=== PATIENT | female | born 1940 | race Caucasian/White ===

== ENCOUNTER 2016-04-06 04:25 | Observation (INO) | payer MEDICARE, OTHER ==
[2016-04-06 05:07] LABS: ABSOLUTE BASOPHILS # (AUTO) 0.1 10^3/uL (0.0-0.2); ABSOLUTE EOSINOPHILS # (AUTO) 0.3 10^3/uL (0.0-0.6); ABSOLUTE LYMPHOCYTES (AUTO) 1.1 10^3/uL (0.5-4.7); ABSOLUTE MONOCYTES (AUTO) 0.4 10^3/uL (0.1-1.4); ABSOLUTE NEUT (AUTO) 4.3 10^3/uL (1.7-8.2); BASOPHILS % (AUTO) 0.9 % (0-2); EOSINOPHILS % (AUTO) 4.5 % (0-6); HEMOGLOBIN 13.2 g/dL (12.0-15.5); HGB HCT DIFFERENCE 0.6; MEAN CORPUSCULAR HEMOGLOBIN 29.6 pg (27.0-33.4); MEAN CORPUSCULAR HGB CONC 33.7 g/dL (32.0-36.0); MEAN CORPUSCULAR VOLUME 88 fl (80-97); MONOCYTES % (AUTO) 7.2 % (3-13); RED BLOOD COUNT 4.45 10^6/uL (3.72-5.28); RED CELL DISTRIBUTION WIDTH 14.6 % (11.5-14.0); SEGMENTED NEUTROPHILS % (AUTO) 69.4 % (42-78); WHITE BLOOD COUNT 6.2 10^3/uL (4.0-10.5)
--- NOTE | 2016-04-06 05:11 | ER Document Report ---
ED General - General TRAVEL OUTSIDE OF THE [place] IN LAST 30 DAYS: No <CLAIRE ARREOLA - Last Filed: 04/06/16 06:37> <SUKHI JONES - Last Filed: 04/06/16 07:44> - General Chief Complaint: Weakness Stated Complaint: CHEST PAIN Notes: Patient is a 76-year-old female presents with complaints of weakness in her left leg and left arm. She says her symptoms start why she is a work around 3: 30 am. She knows that when she was walking she starts to drag her leg. She denies weakness or left arm. No headache. Triage note does mention chest pain. Patient says that she little burning in her chest yesterday. No current pain or burning. No history of stroke or coronary disease. She takes medications for blood pressure. She denies being on blood thinning medications. No other complaints at this time. (CLAIRE ARREOLA) - Related Data Allergies/Adverse Reactions: No Known Allergies Allergy (Unverified 04/06/16 04:30) Past Medical History - Social History Smoking Status: Never Smoker Chew tobacco use (# tins/day): No Frequency of alcohol use: None Drug Abuse: None Family History: Reviewed & Not Pertinent Patient has suicidal ideation: No Patient has homicidal ideation: No Renal/ Medical History: Denies: Hx Peritoneal Dialysis <CLAIRE ARREOLA - Last Filed: 04/06/16 06:37> Review of Systems <CLAIRE ARREOLA - Last Filed: 04/06/16 06:37> <SUKHI JONES - Last Filed: 04/06/16 07:44> - Review of Systems Notes: My Normal Review Basic REVIEW OF SYSTEMS: CONSTITUTIONAL : Denies fever, chills, or sweats. Denies recent illness. EENT: Denies eye, ear, throat, or mouth pain or symptoms. Denies nasal or sinus congestion. CARDIOVASCULAR: Brief episode of chest pain yesterday. RESPIRATORY: Denies cough, cold, or chest congestion. Denies shortness of breath, difficulty breathing, or wheezing. GASTROINTESTINAL: Denies abdominal pain. Denies nausea, vomiting, or diarrhea. Denies constipation. Last BM: MUSCULOSKELETAL: Denies neck or back pain or joint pain or swelling. SKIN: Denies rash or skin lesions. NEUROLOGICAL: Left leg weakness. Some left arm weakness. Some numbness in left arm. ALL OTHER SYSTEMS REVIEWED AND NEGATIVE. (CLAIRE ARREOLA) Physical Exam <CLAIRE ARREOLA - Last Filed: 04/06/16 06:37> <SUKHI JONES - Last Filed: 04/06/16 07:44> - Vital signs Vitals: Temp Pulse Resp BP Pulse Ox 97.8 F 96 18 222/105 H 95 04/06/16 04:28 04/06/16 04:28 04/06/16 04:28 04/06/16 04:28 04/06/16 04:28 (CLAIRE ARREOLA) (SUKHI JONES) - Notes Notes: General Appearance: Well nourished, alert, cooperative, no acute distress, no obvious discomfort. Well-appearing. Vitals: reviewed, See vital signs table. Head: no swelling or tenderness to the head Eyes: PERRL, EOMI, Conjuctiva clear Mouth: No decreasd moisture Throat: No tonsillar inflammation, No airway obstruction, No lymphadenopathy Neck: Supple, no neck tenderness, No thyromegaly Lungs: No wheezing, No rales, No rhonci, No accessory muscle use, good air exchange bilaterally. Heart: Normal rate, Regular rythm, No murmur, no rub Abdomen: Normal BS, soft, No rigidity, No abdominal tenderness, No guarding, no rebound, no abdominal masses, no organomegaly Extremities: , good pulses in all extremities, no swelling or tenderness in the extremities, no edema. Skin: warm, dry, appropriate color, no rash Neuro: speech clear, oriented x 3, normal affect, responds appropriately to questions. Cranial nerves II through XII are intact. Patient is good strength in the right extremities. Patient has good strength with plantar and dorsiflexion of both feet. Patient has difficulty in raising her left leg off the bed. Upon standing patient is unable to bear much weight on his left leg and starts to stumble when she walks. Patient is hard time picking her left leg completely off the floor to take a step. Patient is good strength in the left upper extremity. Distal sensation intact. (CLAIRE ARREOLA) Course - Laboratory Result Diagrams: 04/06/16 04:55 04/06/16 04:55 <CLAIRE ARREOLA - Last Filed: 04/06/16 06:37> - Laboratory Result Diagrams: 04/06/16 04:55 04/06/16 04:55 <SUKHI JONES - Last Filed: 04/06/16 07:44> - Re-evaluation Re-evalutation: 04/06/16 06:37 On reevaluation patient has full sensation in her left upper extremities full strength. She still has some weakness in her left leg; however, this weakness is improving and that she can now lift her leg completely off the bed. Earlier she was only able to lift her heel off the bed. Speech continues to be clear. Facial movements continue to be normal. We will admit the patient for further workup and treatment of her stroke. (CLAIRE ARREOLA) - Vital Signs Vital signs: Temp Pulse Resp BP Pulse Ox 98.4 F 92 12 196/106 H 98 04/06/16 05:41 04/06/16 06:00 04/06/16 07:01 04/06/16 07:01 04/06/16 07:01 (CLAIRE ARREOLA) (SUKHI JONES) - Laboratory Laboratory results interpreted by me: 04/06/16 04/06/16 04/06/16 04:55 04:55 05:45 RDW 14.6 H Est GFR ( Amer) 54 L Est GFR (Non-Af Amer) 44 L Creatine Kinase 148 H Ur Leukocyte Esterase SMALL H (SUKHI JONES) - EKG Interpretation by Me Additional EKG results interpreted by me: 04/06/16 05:11 EKG is reviewed and interpreted by me. EKG shows normal sinus rhythm with rate [address] segment elevation or depression. No ischemic T wave inversions. AR interval, QRS duration, QTC intervals are within normal range. No old EKG available for comparison. (CLAIRE ARREOLA) - Transfer of Care Notes: 04/06/16 06:01 I did speak with the patient right away but THROMBOLYTICS SINCE SHE WAS WITHIN THE TIMEFRAME. Her NIH scale is only 4. I informed her that according to research giving thrombolytics will increase the likelihood of her having return of function in 6 months by approximately 10% in comparison to not receiving the medication. I also informed her that there is a approximately 6% of intracranial hemorrhage which could be permanently debilitating or life- threatening. Patient does not want to take the risk of associated bleeding with the medication. She refuses the thrombolytics. (CLAIRE ARREOLA) Discharge <CLAIRE ARREOLA - Last Filed: 04/06/16 06:37> - Discharge Admitting Provider: Hospitalist Unit Admitted: Telemetry <SUKHI JONES - Last Filed: 04/06/16 07:44> - Discharge Clinical Impression: Stroke Qualifiers: CVA mechanism: unspecified Qualified Code(s): I63.9 - Cerebral infarction, unspecified Hypertension Qualifiers: Hypertension type: unspecified secondary hypertension Qualified Code(s): I15.9 - Secondary hypertension, unspecified Condition: Stable Disposition: ADMITTED INPATIENT Referrals: JOVI TONG NP [Primary Care Provider] - Follow up as needed
[2016-04-06 05:26] LABS: ALANINE AMINOTRANSFERASE 24 U/L (9-52); ALBUMIN 4.4 g/dL (3.5-5.0); ALKALINE PHOSPHATASE 100 U/L (38-126); ANION GAP 11 (5-19); ASPARTATE AMINO TRANSFERASE 23 U/L (14-36); BILIRUBIN,TOTAL 0.7 mg/dL (0.2-1.3); BLOOD UREA NITROGEN 11 mg/dL (7-20); CARBON DIOXIDE 27 mmol/L (22-30); CHLORIDE 102 mmol/L (98-107); CREATINE KINASE 148 U/L (30-135); CREATININE RESULT 1.19 mg/dL (0.52-1.25); GLUCOSE 96 mg/dL (75-110); POTASSIUM 4.1 mmol/L (3.6-5.0); SODIUM 139.7 mmol/L (137-145); TOTAL PROTEIN 7.5 g/dL (6.3-8.2)
[2016-04-06 05:43] LABS: CREATINE KINASE MB 2.19 ng/mL (<4.55)
[2016-04-06 05:46] LABS: TROPONIN I 0.035 ng/mL
[2016-04-06] MEDS ORDERED: ASPIRIN 325 MG TABLET PO ONE (06:04)
[2016-04-06 06:18] LABS: APPEARANCE,URINE SLIGHTLY-CLOUDY; BILIRUBIN,URINE NEGATIVE (NEGATIVE); GLUCOSE, URINE NEGATIVE (NEGATIVE); KETONES,URINE NEGATIVE (NEGATIVE); LEUKOCYTE ESTERASE,URINE SMALL (NEGATIVE); NITRITE,URINE NEGATIVE (NEGATIVE); PROTEIN,URINE NEGATIVE (NEGATIVE); URINE SPECIFIC GRAVITY 1.004; UROBILINOGEN,URINE NEGATIVE mg/dL (<2.0)
[2016-04-06] MEDS ORDERED: CLONIDINE HCL 0.1 MG TABLET PO PRN (08:37)
[2016-04-06] MEDS ORDERED: DOCUSATE SODIUM 100 MG CAPSULE PO PRN (08:43)
[2016-04-06] MEDS ORDERED: ONDANSETRON HCL INJ/PF 4 MG/2 ML SDV IV PRN (08:43)
[2016-04-06] MEDS ORDERED: MAGNESIUM HYDROXIDE SUSP 30 ML UDCUP PO PRN (08:43)
[2016-04-06] MEDS ORDERED: HYDROCODONE/ACETAMINOPHEN 5-325 MG TABLET PO PRN (08:43)
[2016-04-06] MEDS ORDERED: ACETAMINOPHEN 325 MG TABLET PO PRN (08:43)
[2016-04-06] MEDS: FAMOTIDINE 20 MG TABLET PO SCH ×2 (09:32→22:27)
[2016-04-06] MEDS ORDERED: ASPIRIN 81 MG TABLET, ENT COATED PO SCH (10:00)
[2016-04-06] MEDS ORDERED: ATENOLOL 50 MG TABLET PO SCH (10:00)
[2016-04-06 12:44] LABS: CREATINE KINASE MB 1.6 ng/mL (<4.55); TROPONIN I 0.038 ng/mL
[2016-04-06] MEDS ORDERED: CYANOCOBALAMIN (VITAMIN B-12) INJ 1000 MCG/1 ML VIAL IM ONE (14:00)
--- NOTE | 2016-04-06 15:13 | PDOC H&P ---
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 States she was in her previous state of health and denies predisposing factors and aura. She denies headache, vision changes, hearing changes, chest pain, palpitations, fevers or chills, nausea or vomiting. She reports sudden weakness in her left leg causing her to drag the leg adversely affecting her gait with progressive paresthesias climbing up the left leg affecting her left arm described as numbness and tingling and then weakness in the arm and hand as well. She denies difficulty swallowing, slurred speech or word searching. She' s never had anything like this before. Evaluation in the emergency department she had near complete resolution of her symptoms by the time she arrived with only some mild paresthesias persisting which had also resolved by the time of my evaluation. However she was found to be markedly hypertensive with a blood pressure of 212/103, does not routinely take aspirin therapy and so we were asked to admit and evaluate her TIA. Of note the patient reports stopping her atenolol recently because she doesn't like the way it makes her feel. She claims to know when her blood pressure is elevated because it causes a headache and on those days she will take her atenolol. Again she denies headache prior to this episode or during, clearly indicating the headache is a poor predictor. Past Medical History Cardiac Medical History: Reports: Hyperlipidema, Hypertension Pulmonary Medical History: Reports: None Neurological Medical History: Denies: Ischemic CVA, Seizures Endocrine Medical History: Reports: Hypothyroidism Denies: Diabetes Mellitus Type 2 Past Surgical History Past Surgical History: Reports: None Social History Information Source: Patient Smoking Status: Never Smoker Frequency of Alcohol Use: None Hx Recreational Drug Use: No Hx Prescription Drug Abuse: No - Advance Directive Resuscitation Status: Full Code Family History Family History: Reviewed & Not Pertinent. denies: CAD, CVA Parental Family History Reviewed: Yes Children Family History Reviewed: Yes Sibling(s) Family History Reviewed.: Yes Medication/Allergy Home Medications: Atenolol [Tenormin 50 mg Tablet] 50 mg PO DAILY 04/06/16 Atorvastatin Calcium [Lipitor 10 mg Tablet] 10 mg PO QHS 04/06/16 Clobetasol Propionate [Clobetasol Propionate Ointment] 1 applic TOP Q12HP PRN Ergocalciferol (Vitamin D2) [Drisdol 50,000 unit (1.25MG) Capsule] 50,000 units PO SUTH@1000 04/06/16 Estradiol [Estrace] 1 applic PV QHS 04/06/16 Fenofibrate Nanocrystallized [Tricor 48 mg Tablet] 45 mg PO DAILY 04/06/16 Hydrochlorothiazide [Hydrodiuril 25 mg Tablet] 12.5 mg PO DAILY 04/06/16 Levothyroxine Sodium [Synthroid 0.088 mg Tablet] 88 mcg PO DAILY 04/06/16 Losartan Potassium [Cozaar 25 mg Tablet] 25 mg PO QHS 04/06/16 Allergies/Adverse Reactions: No Known Allergies Allergy (Unverified 04/06/16 04:30) Review of Systems Constitutional: ABSENT: chills, fever(s), headache(s), weight gain, weight loss Eyes: ABSENT: visual disturbances Ears: ABSENT: hearing changes Cardiovascular: ABSENT: chest pain, dyspnea on exertion, edema, orthropnea, palpitations Respiratory: ABSENT: cough, hemoptysis Gastrointestinal: ABSENT: abdominal pain, constipation, diarrhea, hematemesis, hematochezia, nausea, vomiting Genitourinary: ABSENT: dysuria, hematuria Musculoskeletal: ABSENT: joint swelling Integumentary: ABSENT: rash, wounds Neurological: PRESENT: abnormal gait, focal weakness, numbness, paresthesias, tingling. ABSENT: abnormal speech, confusion, dizziness, syncope Psychiatric: ABSENT: anxiety, depression Endocrine: ABSENT: cold intolerance, heat intolerance, polydipsia, polyuria Hematologic/Lymphatic: ABSENT: easy bleeding, easy bruising Physical Exam Vital Signs: Temp Pulse Resp BP Pulse Ox 98.4 F 89 15 193/80 H 97 04/06/16 05:41 04/06/16 12:00 04/06/16 13:41 04/06/16 13:41 04/06/16 13:41 PHYSICAL EXAM GENERAL: NAD; well developed, thin; no obese; alert and oriented to person, place, time, situation HEENT: normocephalic, atraumatic; EOMI, PERRLA, no conjunctival injection, no scleral icterus; oral mucosa moist, neck supple, no LAD, normal ROM RESPIRATORY: no accessory muscle use, no increased WOB, good air entry bilaterally; no wheezes, rales, rhonchi; no inspiratory crackles CARDIO: no JVD; RRR; no systolic murmur; no tachycardia VASCULAR: no carotid bruit; no abdominal bruit; no pallor; 2+ radial, DP pulse ; normal capillary refill GI: soft; nondistended; normal bowel sounds; no hepato spleno megaly; no rebound, rigidity, guarding; nontender NEURO: Diminished patella reflexes; normal sensation; normal motor function; no dysarthria; no nystagmus; tongue protrudes midline; normal finger to nose; able to cross midline with finger to ear; nonfocal exam MSK: 5/5 strength; normal ROM hips; no tenderness EXTREMITIES: no calf tender; no palpable cords in calf; no clubbing, cyanosis , pedal edema PSYCH: normal affect, normal mood SKIN: warm; moist; no petechiae; no telengectasias; no jaundice; no rash Results Laboratory Results: 04/06/16 04/06/16 11:53 11:53 Creatine Kinase 116 CK-MB (CK-2) 1.60 Troponin I 0.038 Labs reviewed, CBC unremarkable, chemistry is also unremarkable, LFTs unremarkable, CK was mildly elevated 148 and troponin was borderline at 0.035, B12 is low at 225, urinalysis unremarkable EKG Comments: EKG shows normal sinus rhythm with a rate of 97, corrected QT interval 458 and an axis of -[address] segment changes or T-wave inversions to suggest acute ischemia Impressions: Head CT 04/06/16 04:52 IMPRESSION: CHRONIC CHANGES OF ATROPHY AND MICROVASCULAR ISCHEMIA. NO ACUTE PROCESS. Chest X-Ray 04/06/16 05:54 IMPRESSION: NO ACUTE RADIOGRAPHIC FINDING IN THE CHEST. Carotid Doppler Study 04/06/16 08:42 IMPRESSION: NO HEMODYNAMICALLY SIGNIFICANT STENOSIS. Status: Image reviewed by me - Agree with radiology Assessment & Plan - Diagnosis (1) TIA (transient ischemic attack) Qualifiers: Transient cerebral ischemia type: unspecified Qualified Code(s): G45.9 - Transient cerebral ischemic attack, unspecified Is this a current diagnosis for this admission?: YesPlan: Admit the patient to [facility] bed for careful hemodynamic monitoring. The patient is requesting conservative approach and is refusing MRI. She is willing to except ultrasound studies including carotid Dopplers and echocardiogram. She is willing to accept further laboratory evaluation. Begin empiric aspirin therapy, statin therapy. Allow permissive hypertension for the first 48 hours and attempt to keep blood pressure below 190/100. At present she shows no persistent neurologic or motor deficits and therefore physical and occupational and speech therapy evaluations are of low utility. (2) Hypothyroidism Qualifiers: Hypothyroidism type: unspecified Qualified Code(s): E03.9 - Hypothyroidism, unspecified Is this a current diagnosis for this admission?: YesPlan: Confirm the patient's home dose and continue same, check TSH in the morning. (3) B12 deficiency Is this a current diagnosis for this admission?: YesPlan: This is a new diagnosis for her, and may be contributing to some of her paresthesias. Start B12 replacement therapy. (4) Accelerated hypertension Is this a current diagnosis for this admission?: YesPlan: There is likely a component of rebound hypertension contributing to her current situation and in fact her symptoms may be vasospasm related to malignant hypertension. Will treat with a goal less than 190/100 allowing for some permissive hypertension in the face of a possible ischemic event. Follow-up on echocardiogram looking for valvular and/or wall motion abnormalities and left ventricular hypertrophy. - Time Time Spent: 50 to 70 Minutes Medications reviewed and adjusted accordingly: Yes Anticipated discharge: Home Within: within 24 hours
--- NOTE | 2016-04-06 16:55 | EKG REPORT ---
SEVERITY:- ABNORMAL ECG - SINUS RHYTHM LEFT VENTRICULAR HYPERTROPHY NONSPECIFIC T ABNORMALITIES, INFERIOR LEADS : Confirmed by: Rebecca Hill MD 06-Apr-2016 16:53:50
[2016-04-06 18:15] LABS: CREATINE KINASE MB 1.19 ng/mL (<4.55); TROPONIN I 0.033 ng/mL
--- NOTE | 2016-04-06 18:47 | XCELERA REPORT ---
[address] [address] Transthoracic Echocardiogram Report Name: BARBARA PAL Age: 76 yrs Gender: Female : 1940 Patient Status: Inpatient Patient Location: \S\[facility]\S\A Study Date: 04/06/2016 10:29 AM Height: 66 in Weight: 130 lb BSA: 1.7 m2 Procedure: A complete two-dimensional transthoracic echocardiogram was performed (2D, M-mode, spectral and color flow Doppler). The study was technically difficult with many images being suboptimal in quality. Reason For Study: TIA Ordering Physician: LYNN LUZ Performed By: Sanjay Dejesus Interpretation Summary LV EF is 50% Left ventricular systolic function is mildly reduced. Doppler measurements suggest pseudonormalized left ventricular relaxation, which is associated with grade II/IV or mild to moderate diastolic dysfunction There is mild concentric left ventricular hypertrophy. The left ventricle is grossly normal size. Wall motion cannot be accurately commented on, but no definite regional wall motion abnormalities noted. The right ventricular systolic function is normal. The right atrium is normal in size The left atrial size is normal. There is a moderate amount of mitral regurgitation There is no mitral valve stenosis. There is a trace amount of aortic regurgitation There is no aortic valve stenosis There is a trace or physiologic amount of tricuspid regurgitation Tricuspid regurgitation jet envelope not well defined to measure RV systolic pressure accurately. There is no tricuspid stenosis. The aortic root is not well visualized. The inferior vena cava appeared normal and decreased > 50% with respiration (RAP 5-10 mmHg) Minimal pericardial effusion. No definite cardiac source of CVA/TIA noted on this particular trans- thoracic study. Consider ANUP if clinically indicated. May consider mobile cardiac telemetry monitoring (MCT) for ruling out transient AFIB. The study was technically difficult with many images being suboptimal in quality. MMode/2D Measurements \T\ Calculations RVDd: 1.7 cm LVIDd: 4.6 cm FS: 20.9 % Ao root diam: IVSd: 1.3 cm LVIDs: 3.6 cm EDV(Teich): 2.9 cm LVPWd: 1.3 cm 96.0 ml Ao root area: ESV(Teich): 55.1 ml 6.7 cm2 EF(Teich): 42.6 %LA dimension: 3.4 cm LVLd ap4: 6.8 cm SV(MOD-sp4): EDV(MOD-sp4): 52.0 ml 94.0 ml LVLs ap4: 5.3 cm ESV(MOD-sp4): 42.0 ml EF(MOD-sp4): 55.3 % Doppler Measurements \T\ Calculations MV E max gaye: MV P1/2t max gaye: Ao V2 max: LV V1 max P.1 cm/sec 56.8 cm/sec 132.6 cm/sec 3.6 mmHg MV A max gaye: MV P1/2t: 60.9 msec Ao max PG: LV V1 max: 146.8 cm/sec MVA(P1/2t): 3.6 cm2 7.0 mmHg 94.8 cm/sec MV E/A: 0.38 MV dec slope: 273.1 cm/sec2 MV dec time: 0.20 sec PA V2 max: TR max gaye: RAP systole: 54.1 cm/sec 197.6 cm/sec 10.0 mmHg PA max P.2 mmHgTR max P.6 mmHg RVSP(TR): 25.6 mmHg Left Ventricle The left ventricle is grossly normal size. There is mild concentric left ventricular hypertrophy. Left ventricular systolic function is mildly reduced. LV EF is 50%. Doppler measurements suggest pseudonormalized left ventricular relaxation, which is associated with grade II/IV or mild to moderate diastolic dysfunction. Wall motion cannot be accurately commented on, but no definite regional wall motion abnormalities noted. Right Ventricle The right ventricle is grossly normal size. There is normal right ventricular wall thickness. The right ventricular systolic function is normal. Atria The right atrium is normal in size. The left atrial size is normal. Interarterial septum not well visualized and not well dopplered. Cannot comment on ASD/PFO presence. Mitral Valve There is mild mitral leaflet calcification. There is no mitral valve stenosis. There is a moderate amount of mitral regurgitation. Aortic Valve The aortic valve is mildly calcified. There is no aortic valve stenosis. There is a trace amount of aortic regurgitation. Tricuspid Valve The tricuspid valve is not well visualized secondary to technical limitations. There is no tricuspid stenosis. There is a trace or physiologic amount of tricuspid regurgitation. Tricuspid regurgitation jet envelope not well defined to measure RV systolic pressure accurately. Pulmonic Valve The pulmonic valve is not well visualized. Great Vessels The aortic root is not well visualized. The inferior vena cava appeared normal and decreased > 50% with respiration (RAP 5-10 mmHg). Effusions Minimal pericardial effusion. Incidental Findings No definite cardiac source of CVA/TIA noted on this particular trans- thoracic study. Consider ANUP if clinically indicated. May consider mobile cardiac telemetry monitoring (MCT) for ruling out transient AFIB. : LYNN LUZ > Sean Stevenson
[2016-04-06] MEDS ORDERED: ATORVASTATIN CALCIUM 80 MG TABLET PO SCH (22:00)
[2016-04-07 00:17] LABS: CREATINE KINASE MB 1.42 ng/mL (<4.55); TROPONIN I 0.035 ng/mL
[2016-04-07 07:47] LABS: CHOLESTEROL 242.84 mg/dL (0-200); Direct HDL 68 mg/dL (>40); TRIGLYCERIDES 166 mg/dL (<150)
[2016-04-07 07:58] LABS: DIRECT LDL 135 mg/dL (<100)
[2016-04-07] MEDS ORDERED: ENOXAPARIN SODIUM INJ 40 MG/0.4 ML DISP.SYRIN SUBCUT SCH (08:00)
[2016-04-07 08:01] LABS: VLDL CHOLESTEROL 33.2 mg/dL (10-31)
[2016-04-07 09:50] VITALS: BP 160/88
[2016-04-07] MEDS ORDERED: CYANOCOBALAMIN (VITAMIN B-12) INJ 1000 MCG/1 ML VIAL IM SCH (10:00)
--- NOTE | 2016-04-07 14:42 | PDOC DISCHARGE SUMMARY ---
General - Admit/Disc Date/PCP Admission Date/Primary Care Provider: 04/06/16 08:37 JOVI TONG NP Discharge Date: 04/07/16 - Discharge Diagnosis (1) TIA (transient ischemic attack) Is this a current diagnosis for this admission?: YesSummary: She's had complete resolution of the symptoms that brought her to the emergency department without recurrence. She refused MRI but allowed echocardiogram that showed a mildly suppressed left the catheter function with an EF of 50%, grade 2 diastolic dysfunction, and moderate mitral regurgitation. No source of embolic disease was identified on echo. Her carotid Doppler showed less than 50 % bilateral stenosis with plaque evident. Her lipid panel shows all to be abnormal. Her hemoglobin A1c was normal at 5.7. As she has had no persistent or recurrent symptoms she is stable for discharge home at this time. Will continue atenolol and add high-dose statin therapy and aspirin. (2) Hypothyroidism Is this a current diagnosis for this admission?: YesSummary: TSH is not at goal at greater than 11 but she states her PCP just recently increased her Synthroid from 25-50 g. Will defer to PCP regarding further titration. (3) B12 deficiency Is this a current diagnosis for this admission?: YesSummary: This may be contributing to some of the paresthesias she exhibited but certainly not the loss of motor function in the left lower extremity. 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 Defer to her PCP regarding additional IM injections and monitoring. (4) Accelerated hypertension Is this a current diagnosis for this admission?: YesSummary: Largely due to medical noncompliance, she was counseled regarding the consistent use of beta blockers rather than intermittent. She states clear understanding and willingness to comply. She does not like the way she feels on the higher dose of atenolol at 100 mg per day so we will continue only up to 50 for now and defer to her PCP at follow-up in one week with the addition of antihypertensive regimens. Would recommend considering LEANDRA inhibitor given her echocardiogram findings and risk for recurrent stroke. - Additional Information Resuscitation Status: Full Code Discharge Diet: Cardiac Discharge Activity: Activity As Tolerated Home Medications: Atenolol [Tenormin 50 mg Tablet] 50 mg PO DAILY 04/06/16 Clobetasol Propionate [Clobetasol Propionate Ointment] 1 applic TOP Q12HP PRN Ergocalciferol (Vitamin D2) [Drisdol 50,000 unit (1.25MG) Capsule] 50,000 units PO SUTH@1000 04/06/16 Acetaminophen [Tylenol 325 mg Tablet] 650 mg PO Q4HP PRN tablet 04/07/16 Aspirin [Ecotrin 81 mg EC Tablet] 162 mg PO DAILY tabec 04/07/16 Atenolol [Tenormin 50 mg Tablet] 25 mg PO DAILY #30 tablet 04/07/16 Atorvastatin Calcium [Lipitor 80 mg Tablet] 80 mg PO QHS #30 tablet 04/07/16 Levothyroxine Sodium [Synthroid 0.088 mg Tablet] 50 mcg PO DAILY #30 04/07/16 History of Present Illness Patient complains of: Left leg and arm weakness History of Present Illness: BARBARA PAL is a 76 year old female presents to the emergency department from home with sudden onset of left-sided weakness at around 3:30 this morning 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 Hospital Course Hospital Course: States she was in her previous state of health and denies predisposing factors and aura. She denies headache, vision changes, hearing changes, chest pain, palpitations, fevers or chills, nausea or vomiting. She reports sudden weakness in her left leg causing her to drag the leg adversely affecting her gait with progressive paresthesias climbing up the left leg affecting her left arm described as numbness and tingling and then weakness in the arm and hand as well. She denies difficulty swallowing, slurred speech or word searching. She' s never had anything like this before. Evaluation in the emergency department she had near complete resolution of her symptoms by the time she arrived with only some mild paresthesias persisting which had also resolved by the time of my evaluation. However she was found to be markedly hypertensive with a blood pressure of 212/103, does not routinely take aspirin therapy and so we were asked to admit and evaluate her TIA. She was admitted to the hospital for overnight monitoring and did not show any cardiac arrhythmias. She had complete resolution of her symptoms within hours of her arrival. She had no recurrence of her symptoms overnight. Evaluation including echocardiogram and carotid Dopplers were performed as well as extensive laboratory evaluation that showed the findings noted above. She was allowed permissive hypertension in the setting of acute TIA but was resumed on a lower dose antihypertensive in anticipation of close outpatient follow-up with her primary care provider in one week for further titration. Her goal blood pressure over the next 3 months should be 140/90 or less and ultimately by years and 125/85 or less. She was started on low-dose aspirin as primary prophylaxis, and initiated high-dose statin therapy to stabilize the plaque seen her carotid arteries as well as to lower the multiple lines of cholesterol that are elevated. At this time she is stable for discharge and quite anxious for discharge home. She expresses no concerns to me about discharge at this time. Multiple family members were present in the room, I spent at least 30 minutes with him and answering their questions and reviewing her case with her permission. All questions were asked and answered to their satisfaction. Physical Exam Vital Signs: Temp Pulse Resp BP Pulse Ox 97.5 F 68 16 160/88 H 99 04/07/16 09:48 04/07/16 09:48 04/07/16 09:48 04/07/16 09:48 04/07/16 09:48 Intake & Output 04/06/16 04/07/16 04/08/16 06:59 06:59 06:59 Intake Total 407 Balance 407 Weight 61.1 kg PHYSICAL EXAM GENERAL: NAD; well developed, thin; no obese; alert and oriented to person, place, time, situation HEENT: normocephalic, atraumatic; EOMI, PERRLA, no conjunctival injection, no scleral icterus; oral mucosa moist, neck supple, no LAD, normal ROM RESPIRATORY: no accessory muscle use, no increased WOB, good air entry bilaterally; no wheezes, rales, rhonchi; no inspiratory crackles CARDIO: no JVD; RRR; no systolic murmur; no tachycardia VASCULAR: no carotid bruit; no abdominal bruit; no pallor; 2+ radial, DP pulse ; normal capillary refill GI: soft; nondistended; normal bowel sounds; no hepato spleno megaly; no rebound, rigidity, guarding; nontender NEURO: Normal patella reflexes; normal sensation; normal motor function; no dysarthria; no nystagmus; tongue protrudes midline; normal finger to nose; able to cross midline with finger to ear; nonfocal exam MSK: 5/5 strength; normal ROM hips; no tenderness EXTREMITIES: no calf tender; no palpable cords in calf; no clubbing, cyanosis , pedal edema PSYCH: normal affect, normal mood SKIN: warm; moist; no petechiae; no telengectasias; no jaundice; no rash Results Laboratory Results: 04/07/16 04/07/16 06:20 06:20 Triglycerides 166 H Cholesterol 242.84 H LDL Cholesterol Direct 135 H VLDL Cholesterol 33.2 H HDL Cholesterol 68 TSH 11.30 H 04/06/16 04/06/16 04/06/16 11:53 11:53 17:28 Creatine Kinase 116 111 CK-MB (CK-2) 1.60 Troponin I 0.038 04/06/16 04/06/16 04/06/16 17:28 23:38 23:38 Creatine Kinase 107 CK-MB (CK-2) 1.19 1.42 Troponin I 0.033 0.035 Impressions: Head CT 04/06/16 04:52 IMPRESSION: CHRONIC CHANGES OF ATROPHY AND MICROVASCULAR ISCHEMIA. NO ACUTE PROCESS. Chest X-Ray 04/06/16 05:54 IMPRESSION: NO ACUTE RADIOGRAPHIC FINDING IN THE CHEST. Carotid Doppler Study 04/06/16 08:42 IMPRESSION: NO HEMODYNAMICALLY SIGNIFICANT STENOSIS. Qualifiers PATEINT BEING DISCHARGED WITH ANY OF THE FOLLOWING DIAGNOSIS?: Stroke VTE patient discharged on overlapping Therapy?: Yes Stroke Pt being discharged on Anti-thrombolytic therapy?: Yes Stroke Pt being discharged on Anti-coagulation therapy?: No Reason(s) for not prescribing Anti-coagulation therapy:: Not indicated Stroke Pt being discharged on Statins?: Yes Plan Discharge Plan: Discharged home with close outpatient follow-up with her PCP in one week. Signs and symptoms of stroke were described to both she and her family emphasizing the need to return to the emergency department for evaluation within 3 hours of onset of symptoms. They all expressed understanding and willingness to comply with medical direction. Time Spent: Greater than 30 Minutes
== END 2016-04-07 10:20 | disposition home or self-care (01) ==
LOC: ER 04:25 → UNDOADMIN 07:54 → EH 07:54 → INTOOBSV 08:37 → EH 08:37 → 3W 21:40
PROVIDERS: ADMIT Internal Medicine; ATTEND Internal Medicine
DX: G45.9 Transient cerebral ischemic attack, unspecified (principal); E03.9 Hypothyroidism, unspecified; E53.8 Deficiency of other specified B group vitamins; I10 Essential (primary) hypertension; E78.5 Hyperlipidemia, unspecified
CPT/HCPCS: 93005; 99285; 36415 ×2; 82553; 82962; 82607; 82550; 84443; 85025; 80053; 81001; 84484; 83036; 80061; 93306; 93880; 71010; 70450; 93010; 97162; G0378 ×2; A9270 ×6; J3420; J1650; J3490 ×2; G8978; G8979

== ENCOUNTER 2016-06-06 06:48 | Day surgery (SDC) | payer MEDICARE, OTHER ==
[~2016-06-06 06:48] MED LIST: KETOROLAC TROMETHAMINE 0.45% 4 DROP/0.4 ML DROPERETTE OD PRN
[2016-06-06] MEDS: CYCLOPENTOLATE 0.2%/PHENYLEPHRINE 1% OPH SOLN 2 ML OD PRN ×3 (07:00→07:33)
[2016-06-06] MEDS: TROPICAMIDE 1% OPH SOLN 3 ML OD PRN ×3 (07:00→07:33)
[2016-06-06] MEDS: BESIFLOXACIN HCL 0.6% OPH SUSP 5 ML BOTTLE OD PRN ×4 (07:01→08:15)
[2016-06-06] MEDS: TETRACAINE HCL 0.5% OPH SOLN 0.6 ML DROPERETTE OD PRN ×3 (07:02→07:54)
[2016-06-06] MEDS ORDERED: MIDAZOLAM 2 MG/2 ML INJ ONE (07:29)
[2016-06-06] MEDS ORDERED: FENTANYL CITRATE INJ/PF 100 MCG/2 ML AMPUL ONE (07:29)
[2016-06-06] MEDS: EPINEPHRINE INJ/PF 1 MG/1 ML AMPULE ONE ×2 (08:05)
[2016-06-06] MEDS: CHONDR SU A NA/HYALUR INTRAOC KIT (SURGICARE) ONE ×2 (08:05)
[2016-06-06] MEDS: LIDOCAINE 1% INJ-PF (10 MG/ML) 30 ML SDV ONE ×2 (08:05)
[2016-06-06] MEDS: TOBRAMYCIN SULFATE/DEXAMETH OPH OINTMENT 3.5 GM ONE ×2 (08:15)
== END 2016-06-06 09:02 | disposition home or self-care (01) ==
LOC: SC 06:48
PROVIDERS: ATTEND Ophthalmology
PROC: 08RJ3JZ Replacement of Right Lens with Synthetic Substitute, Percutaneous Approach (ICD-10-PCS; principal; 2016-06-06 07:45)
DX: H25.11 Age-related nuclear cataract, right eye (principal); I10 Essential (primary) hypertension; E78.00 Pure hypercholesterolemia, unspecified; E03.9 Hypothyroidism, unspecified; K21.9 Gastro-esophageal reflux disease without esophagitis; Z79.82 Long term (current) use of aspirin; Z79.899 Other long term (current) drug therapy; Z86.73 Personal history of transient ischemic attack (TIA), and cerebral infarction without residual deficits
CPT/HCPCS: 66984; V2630; J2250; J3490 ×3; A9270; J0171; 142; J3010

== ENCOUNTER 2016-06-20 07:08 | Day surgery (SDC) | payer MEDICARE, OTHER ==
[~2016-06-20 07:08] MED LIST changes: -KETOROLAC TROMETHAMINE 0.45% 4 DROP/0.4 ML DROPERETTE OD PRN; +KETOROLAC TROMETHAMINE 0.45% 4 DROP/0.4 ML DROPERETTE OS PRN
[2016-06-20] MEDS: BESIFLOXACIN HCL 0.6% OPH SUSP 5 ML BOTTLE OS PRN ×3 (07:21→08:34)
[2016-06-20] MEDS: CYCLOPENTOLATE 0.2%/PHENYLEPHRINE 1% OPH SOLN 2 ML OS PRN ×3 (07:21→07:59)
[2016-06-20] MEDS: TROPICAMIDE 1% OPH SOLN 3 ML OS PRN ×3 (07:21→07:59)
[2016-06-20] MEDS: TETRACAINE HCL 0.5% OPH SOLN 0.6 ML DROPERETTE OS PRN ×3 (07:22→08:17)
[2016-06-20] MEDS ORDERED: LIDOCAINE 1% INJ-PF (10 MG/ML) 30 ML SDV ONE (07:32)
[2016-06-20] MEDS ORDERED: EPINEPHRINE INJ/PF 1 MG/1 ML AMPULE ONE (07:32)
[2016-06-20] MEDS ORDERED: CHONDR SU A NA/HYALUR INTRAOC KIT (SURGICARE) ONE (07:32)
[2016-06-20] MEDS ORDERED: TOBRAMYCIN SULFATE/DEXAMETH OPH OINTMENT 3.5 GM ONE (07:32)
[2016-06-20] MEDS ORDERED: MIDAZOLAM 2 MG/2 ML INJ ONE (08:04)
[2016-06-20] MEDS ORDERED: FENTANYL CITRATE INJ/PF 100 MCG/2 ML AMPUL ONE (08:04)
== END 2016-06-20 09:26 | disposition home or self-care (01) ==
LOC: SC 07:08
PROVIDERS: ATTEND Ophthalmology
PROC: 08RK3JZ Replacement of Left Lens with Synthetic Substitute, Percutaneous Approach (ICD-10-PCS; principal; 2016-06-20 08:15)
DX: H25.12 Age-related nuclear cataract, left eye (principal); Z96.1 Presence of intraocular lens; M19.90 Unspecified osteoarthritis, unspecified site; E03.9 Hypothyroidism, unspecified; E78.00 Pure hypercholesterolemia, unspecified; I10 Essential (primary) hypertension; M81.0 Age-related osteoporosis without current pathological fracture; Z86.73 Personal history of transient ischemic attack (TIA), and cerebral infarction without residual deficits; Z79.82 Long term (current) use of aspirin; Z79.899 Other long term (current) drug therapy
CPT/HCPCS: 66984; V2630; J2250; J3490 ×3; A9270; J0171; J3010; 142

== ENCOUNTER 2017-06-09 05:39 | Emergency (ER) | payer MEDICARE, OTHER ==
--- NOTE | 2017-06-09 05:53 | ER Document Report ---
Doctor's Note Notes: 06/09/17 05:50 I performed a quick triage evaluation the patient. Patient is 77-year-old female who is brought straight back from triage because of having strokelike symptoms. She says the symptoms started around 3:30 AM when she was getting in her car to come to work. She said by getting ready to go to work in the house she was fine without any problems. She knows that she takes blood pressure medications. She does not think she takes blood thinning medications. She complains of weakness in her right arm and slurring of her speech. On exam patient has always slightly slurred speech. She does have some weakness and discoordination of the right arm however she is able to keep her right arm raise against gravity for more than 10 seconds. She is able to keep the remainder of her 3 extremities raising is gravity for 10 seconds. She has good distal sensation. I have ordered an emergent CT scan of the head to rule out intracranial bleeding. Patient will then be reassessed and have discussion about thrombolytics if she does not have contraindications. Dictation of this chart was performed using voice recognition software; therefore, there may be some unintended grammatical errors. 06/09/17 05:53
--- NOTE | 2017-06-09 05:54 | ER Document Report ---
ED NIH Stroke Scale - NIH Stroke Scale *: 1. NIH scale should be completed with appropriate accompanying assessment tools. *: 2. The NIH should reflect what the patient is capable of doing and should not be coached by the clinician. 1a. Level of Consciousness: 0=Alert;keenly responsive -: 1=Drowsy -: 2=Obtunded -: 3=Coma/unresponsive or reflex to noxious stimuli. 1a. Responses: 0 1b. Orientation Questions: a. What month is it? -: b. How old are you? -: 0=Answers both questions correctly. -: 1=Answers one question correctly or patient is intubated or has orotracheal trauma. -: 2=Answers neither question correctly. 1b. Responses: 0 1c. Response to commands: a. Open and close eyes? -: b. Cat Scan Technologist and release hand? -: Credit is given despite weakness. Demonstration of task is permitted. Substitute command if hands cannot be used. -: 0=Performs both tasks correctly -: 1=Performs one task correctly -: 2=Performs neither task correctly 1c. Responses: 0 2. Gaze: Establish eye contact and instruct patient to "Follow my finger" -: 0=Normal -: 1=Partial gaze palsy. Gaze is abnormal in one or both eyes, but where forced deviation or total gaze paresis is not present. -: 2=Forced deviation or total gaze paresis. 2. Responses: 0 3. Visual Finn: Sees fingers in all four quadrants. -: 0=No visual loss. -: 1=Partial hemianopsia. -: 2=Complete hemianopsia. -: 3=Bilateral hemianopsia (including Cortical blindness) 3. Responses: 0 4. Facial Movement: Instruct patient to: -: a. Show me your teeth -: b. Raise your eyebrows -: c. Close your eyes -: d. Smile -: 0=Normal symmetrical movement -: 1=Minor paralysis (flattened nasolabial fold, asymmetry on smiling). -: 2=Partial paralysis (total or near total paralysis of lower face). -: 3=Complete paralysis of upper and lower face 4. Responses: 0 5. Motor functions (left arm): Alternate sides and extend each arm with palms down (90 degrees if sitting or 45 degrees for supine). -: 0=No drift;limb holds for full 10 seconds. -: 1=Drift; limb holds but drifts down before full 10 seconds, but does not hit bed. -: 2=Some effort against gravity; limb cannot get to or maintain position. -: 3=No effort against gravity; limb falls. -: 4=No movement. -: UN=Amputation, joint fusion, explain in comments. 5. Responses (left arm): 0 5. Motor Functions (right arm): Alternate sides and extend each arm with palms down (90 degrees if sitting or 45 degrees for supine). -: 0=No drift;limb holds for full 10 seconds. -: 1=Drift; limb holds but drifts down before full 10 seconds, but does not hit bed. -: 2=Some effort against gravity; limb cannot get to or maintain position. -: 3=No effort against gravity; limb falls. -: 4=No movement. -: UN=Amputation, joint fusion, explain in comments. 5. Responses (right arm): 0 6. Motor Functions (left leg): With patient lying supine, alternate sides and extend each leg (30 degrees always while supine). -: 0=No drift, leg holds position for full 5 seconds -: 1=Drift; leg falls before full 5 seconds but does not hit bed. -: 2=Some effort against gravity, leg falls to bed but some effort against gravity. -: 3=No effort against gravity, leg falls to bed immediately. -: 4=No movement. -: UN=Amputation, joint fusion; explain in comments. 6. Responses (left leg): 0 6. Motor Functions (right leg): With patient lying supine, alternate sides and extend each leg (30 degrees always while supine). -: 0=No drift, leg holds position for full 5 seconds -: 1=Drift; leg falls before full 5 seconds but does not hit bed. -: 2=Some effort against gravity, leg falls to bed but some effort against gravity. -: 3=No effort against gravity, leg falls to bed immediately. -: 4=No movement. -: UN=Amputation, joint fusion; explain in comments. 6. Responses (right leg): 0 7. Limb Ataxia: With eyes open instruct patient to: -: a. "Touch your finger to your nose". -: b. "Touch your heel to your bartholomew" -: 0=Absent -: 1=Present in one limb. -: 2=Present in two limbs. -: UN=Amputation or joint fusion; explain in comments. 7. Responses: 1 7. If ataxia present choose as appropriate: Right arm 8. Sensory: Test sensation using pinprick or noxious stimuli. Test as many body parts as possible. -: 0=Normal;no sensory loss -: 1=Mile to moderate sensory loss (patient feels pin prick but is less sharp on affected side). -: 2=Severe or total sensory loss. 8. Responses: 0 9. Best Language: Instruct patient to: -: a. "Describe what you see in this picture." -: b. "Name the items in this picture." -: c. "Read these sentences." -: 0=No aphasia, normal -: 1=Mild to moderate aphasia. -: 2=Severe aphasia -: 3=Mute, global aphasia, no usable speech or auditory comprehension. 9. Responses: 1 10. Articulation, Dysarthia: Instruct patient to: -: "Read these words" or "Repeat these words" -: 0=Normal -: 1=Mild to moderate; patient may slur some words but can be understood without difficulty. -: 2=Severe; patients speech so slurred as to be unintelligible in the absence of dysphasia. -: UN=Intubated or other physical barrier, explain in comments. 10. Responses: 1 11. Extinction or inattention: 0=No abnormality -: 1= Visual, tactile, auditory, spatial, or personal inattention or extinction to bilateral simulation in one or the sensory modalities. -: 2=Profound cecilia-inattention or cecilia-inattention to more than one modality; does not recognize own hand. 11. Responses: 0 Total Score: 3
--- NOTE | 2017-06-09 06:09 | RADIOLOGY REPORT (SQ) ---
EXAM DESCRIPTION: CT HEAD WITHOUT CLINICAL HISTORY: 77 years Female, slurred speech COMPARISON: None. TECHNIQUE: No contrast. Coronal and sagittal reformat. This exam was performed according to our departmental dose-optimization program, which includes automated exposure control, adjustment of the mA and/or kV according to patient size and/or use of iterative reconstruction technique. FINDINGS: No hemorrhage or infarct. No mass, mass effect, or midline shift. Mild white matter microangiopathy. Atherosclerosis. Brain and extra-axial structures appear otherwise intact. IMPRESSION: No acute findings.
[2017-06-09 06:19] LABS: ABSOLUTE EOSINOPHILS # (AUTO) 0.1 10^3/uL (0.0-0.6); ABSOLUTE LYMPHOCYTES (AUTO) 0.9 10^3/uL (0.5-4.7); ABSOLUTE MONOCYTES (AUTO) 0.3 10^3/uL (0.1-1.4); ABSOLUTE NEUT (AUTO) 4.7 10^3/uL (1.7-8.2); BASOPHILS % (AUTO) 0.7 % (0-2); EOSINOPHILS % (AUTO) 2.4 % (0-6); HEMATOCRIT 41.7 % (36.0-47.0); HEMOGLOBIN 13.8 g/dL (12.0-15.5); LYMPHOCYTES % (AUTO) 14.4 % (13-45); MEAN CORPUSCULAR HEMOGLOBIN 28.8 pg (27.0-33.4); MEAN CORPUSCULAR VOLUME 87 fl (80-97); MONOCYTES % (AUTO) 5.5 % (3-13); PLATELET COUNT 220 10^3/uL (150-450); RED BLOOD COUNT 4.77 10^6/uL (3.72-5.28); RED CELL DISTRIBUTION WIDTH 15.1 % (11.5-14.0); TOTAL CELLS COUNTED % (AUTO) 100 %; WHITE BLOOD COUNT 6.1 10^3/uL (4.0-10.5)
[2017-06-09 06:23] LABS: INTERNATIONAL RATION (INR) 0.91
[2017-06-09 06:29] LABS: PARTIAL THROMBOPLASTIN TIME 32.2 SEC (23.5-35.8); PROTHROMBIN TIME 12.7 SEC (11.4-15.4)
[2017-06-09] MEDS ORDERED: LABETALOL HCL INJ 20 MG/4 ML DISP.SYRIN IV ONE ×2 (06:31→07:02)
[2017-06-09 06:45] LABS: ALANINE AMINOTRANSFERASE 18 U/L (9-52); ALBUMIN 4.9 g/dL (3.5-5.0); ALKALINE PHOSPHATASE 116 U/L (38-126); ANION GAP 11 (5-19); ASPARTATE AMINO TRANSFERASE 32 U/L (14-36); BILIRUBIN,DIRECT 0.4 mg/dL (0.0-0.4); BILIRUBIN,TOTAL 0.8 mg/dL (0.2-1.3); BLOOD UREA NITROGEN 17 mg/dL (7-20); CALCIUM 10.2 mg/dL (8.4-10.2); CARBON DIOXIDE 30 mmol/L (22-30); CHLORIDE 103 mmol/L (98-107); CREATINE KINASE 239 U/L (30-135); GLUCOSE 115 mg/dL (75-110); SODIUM 144.4 mmol/L (137-145); TOTAL PROTEIN 8.5 g/dL (6.3-8.2)
[2017-06-09 06:46] LABS: CREATINE KINASE MB 2.61 ng/mL (<4.55); TROPONIN I 0.016 ng/mL
--- NOTE | 2017-06-09 06:49 | RADIOLOGY REPORT (SQ) ---
EXAM DESCRIPTION: CHEST SINGLE VIEW CLINICAL HISTORY: 77 years Female, slurred speech COMPARISON: None. NUMBER OF VIEWS/TECHNIQUE: 1/AP FINDINGS: Adequate lung volume, clear parenchyma, prominent cardiac silhouette, and intact bony thorax. IMPRESSION: No acute cardiopulmonary findings.
[2017-06-09] MEDS ORDERED: NITROGLYCERIN 2% OINTMENT 1 GM PACKET TP ONE (06:54)
--- NOTE | 2017-06-09 07:40 | ER Document Report ---
ED Neuro Symptoms/Deficit - General Chief Complaint: S/S of Possible Stroke Stated Complaint: ARM WEAKNESS Time Seen by Provider: 06/09/17 05:49 Notes: 77-year-old female to the emergency department with chief complaint of strokelike symptoms. Slurred speech and right-sided facial weakness with mild weakness of the right upper and right lower extremity. Patient has had similar symptoms in the past and was diagnosed with a TIA. Patient has extremely high blood pressure with uncontrolled hypertension. Does not know what medications that she takes. The patient's granddaughter states that she is very noncompliant with her medications. 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 Thinks that around 330 or around 4 she began to have some difficulty with speech. Now she states that it is more likely around 4 AM. Actually drove in her car and went home. Notified family members and then patient presented here at around 6 AM. Initial evaluation was performed which showed an NIH stroke scale of 3. One hour later NIH stroke scale was repeated which showed a stroke scale of 6. Pressure was initially stream elevated at 210/110 TRAVEL OUTSIDE OF THE [place]. IN LAST 30 DAYS: No - Related Data Allergies/Adverse Reactions: No Known Allergies Allergy (Unverified 04/06/16 04:30) Past Medical History - General Information source: Patient - Social History Smoking Status: Never Smoker Cigarette use (# per day): No Frequency of alcohol use: None Drug Abuse: None Lives with: Family Family History: Reviewed & Not Pertinent. denies: CAD, CVA Patient has suicidal ideation: No Patient has homicidal ideation: No - Past Medical History Cardiac Medical History: Reports: Hx Hypercholesterolemia, Hx Hypertension - MEDICATED Denies: Hx Heart Attack Pulmonary Medical History: Denies: Hx Asthma Neurological Medical History: Denies: Hx Cerebrovascular Accident, Hx Seizures Endocrine Medical History: Reports: Hx Hypothyroidism. Denies: Hx Diabetes Mellitus Type 2 Renal/ Medical History: Denies: Hx Peritoneal Dialysis GI Medical History: Denies: Hx Hepatitis, Hx Hiatal Hernia, Hx Ulcer Infectious Medical History: Denies: Hx Hepatitis Past Surgical History: Denies: Hx Hysterectomy, Hx Mastectomy, Hx Open Heart Surgery, Hx Pacemaker - Immunizations Hx Diphtheria, Pertussis, Tetanus Vaccination: Yes Review of Systems - Review of Systems Constitutional: No symptoms reported EENT: No symptoms reported, Other - Facial weakness, slurred speech, visual field deficits Cardiovascular: No symptoms reported Respiratory: No symptoms reported Gastrointestinal: No symptoms reported Genitourinary: No symptoms reported Female Genitourinary: No symptoms reported Musculoskeletal: See HPI Skin: No symptoms reported Hematologic/Lymphatic: No symptoms reported Neurological/Psychological: No symptoms reported, Weakness, Numbness Physical Exam - Vital signs Vitals: Pulse Ox 99 06/09/17 05:49 Interpretation: Normal - General General appearance: Appears well, Alert - HEENT Head: Normocephalic, Atraumatic Eyes: Normal Pupils: PERRL - Respiratory Respiratory status: No respiratory distress Chest status: Nontender Breath sounds: Normal Chest palpation: Normal - Cardiovascular Rhythm: Regular Heart sounds: Normal auscultation Murmur: No - Abdominal Inspection: Normal Distension: No distension Bowel sounds: Normal Tenderness: Nontender Organomegaly: No organomegaly - Back Back: Normal, Nontender - Extremities General upper extremity: Normal inspection, Nontender, Normal color, Normal ROM , Normal temperature, Other - 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 No: Normal strength General lower extremity: Normal inspection, Nontender, Normal color, Normal ROM , Normal temperature, Normal weight bearing. No: Theresa's sign - Neurological Neuro grossly intact: Yes Cognition: Normal Orientation: AAOx4 [place] Coma Scale Eye Opening: Spontaneous [place] Coma Scale Verbal: Oriented [place] Coma Scale Motor: Obeys Commands [place] Coma Scale Total: 15 Speech: Normal Cranial nerves: Facial palsy, Forehead sparing Motor strength normal: LUE, LLE. No: RUE, RLE Sensory: Normal - Psychological Associated symptoms: Normal affect, Normal mood - Skin Skin Temperature: Warm Skin Moisture: Dry Skin Color: Normal Course - Re-evaluation Re-evalutation: 06/09/17 08:03 patient seen initially by Dr. Yoon on arrival and stroke protocol was initiated. NIH stroke scale initially by Dr. Yoon with 3. Patient was noted to be extremely hypertensive. When I arrived I evaluated patient and she had an NIH stroke scale of 6 with extremely elevated high blood pressure. Immediate orders were given for labetalol and nitroglycerin according to our protocols here. Blood pressure did not improve so nicardipine was actually ordered. I was able to speak with the neurologist at [facility] who states that she may or may not be a candidate based on her blood pressure. He recommended ordering a CT head with CTA of neck and head. Patient and family members have been made aware of the options available. At this time there is not significant desire to be transferred nor is there significant desire on their parts to have thrombolytics. The pros and cons were given with regards to thrombolytics. At this time patient still does not meet criteria based on her blood pressure parameters and patient seems okay with that. Patient's brother and patient's granddaughter are in the room and they do not recommend getting thrombolytics either. The neurologist that I spoke with states that she would be a candidate for thrombolytics if her blood pressure could come down nicely on a nicardipine drip. We will start the drip and see what happens at this time. 06/09/17 10:10 Patient did not initially respond to the nicardipine drip either. Blood pressure finally down a little bit after continuous titration. Blood pressure currently 141/77. Patient is 6 hours out from initial symptoms if going from 4 AM or is 6-1/2 hours if going from 3:30 AM. Attempting to consult with a neurologist again. CTA unremarkable for large clot burden. Unlikely candidate for any type of neuro intervention. Aspirin ordered oral or rectally 06/09/17 10:33 I spoke with the hospitalist regards to admitting patient here. Attempting to contact another neurologist just to discuss the case with. Of note, she did not meet criteria for thrombolytics based on her blood pressure. Despite aggressive treatment with medications patient did not obtain an achievable/goal blood pressure until well outside the window. This was discussed with the family. CTA of the head and neck did not show any large clots that would be amenable to neuro intervention. Will proceed with MRI and proceed with admission here if hospitalist is comfortable with that plan. I did speak with the hospitalist and she did request that I consult with a neurologist prior to agreeing to the admit. 06/09/17 10:54 I did discuss case with a neurologist at [facility]. They recommend conservative management at this time. Will reconsult with the hospitalist at this time. 06/09/17 11:02 Laboratory 06/09/17 06/09/17 06/09/17 05:47 06:06 06:06 WBC 6.1 RBC 4.77 Hgb 13.8 Hct 41.7 MCV 87 MCH 28.8 MCHC 33.0 RDW 15.1 H Plt Count 220 Seg Neutrophils % 77.0 Lymphocytes % 14.4 Monocytes % 5.5 Eosinophils % 2.4 Basophils % 0.7 Absolute Neutrophils 4.7 Absolute Lymphocytes 0.9 Absolute Monocytes 0.3 Absolute Eosinophils 0.1 Absolute Basophils 0.0 PT 12.7 INR 0.91 APTT 32.2 Sodium Potassium Chloride Carbon Dioxide Anion Gap BUN Creatinine Est GFR ( Amer) Est GFR (Non-Af Amer) Glucose POC Glucose 108 Calcium Total Bilirubin Direct Bilirubin Neonat Total Bilirubin Neonat Direct Bilirubin Neonat Indirect Bili AST ALT Alkaline Phosphatase Creatine Kinase CK-MB (CK-2) Troponin I Total Protein Albumin 06/09/17 06/09/17 06:06 06:06 WBC RBC Hgb Hct MCV MCH MCHC RDW Plt Count Seg Neutrophils % Lymphocytes % Monocytes % Eosinophils % Basophils % Absolute Neutrophils Absolute Lymphocytes Absolute Monocytes Absolute Eosinophils Absolute Basophils PT INR APTT Sodium 144.4 Potassium 4.0 Chloride 103 Carbon Dioxide 30 Anion Gap 11 BUN 17 Creatinine 1.09 Est GFR ( Amer) 59 L Est GFR (Non-Af Amer) 49 L Glucose 115 H POC Glucose Calcium 10.2 Total Bilirubin 0.8 Direct Bilirubin 0.4 Neonat Total Bilirubin Not Reportable Neonat Direct Bilirubin Not Reportable Neonat Indirect Bili Not Reportable AST 32 ALT 18 Alkaline Phosphatase 116 Creatine Kinase 239 H CK-MB (CK-2) 2.61 Troponin I 0.016 Total Protein 8.5 H Albumin 4.9 Chest X-Ray 06/09/17 05:49 IMPRESSION: No acute cardiopulmonary findings. Head CT 06/09/17 05:49 IMPRESSION: No acute findings. Head CTA 06/09/17 07:59 IMPRESSION: NO CTA EVIDENCE OF STENOSIS OR ANEURYSM OF THE [place]. Neck CTA 06/09/17 07:59 IMPRESSION: No significant stenosis. 06/09/17 13:02 Patient was accepted for admission here. Family members spoke with other family members who live in the [place] area and were concerned about her being in [place]. They are requesting that I transfer her to [place] where it would be easier for them to visit. At this time I think that would be appropriate being that we have no neurologist here. Accepting facility at this time. 06/09/17 13:47 Pressure dropped even after the drip was stopped. IV fluid bolus ordered. Patient has been accepted at [facility], Dr. Stearns accepting - Vital Signs Vital signs: Temp Pulse Resp BP Pulse Ox 98.1 F 94 22 H 212/103 H 96 06/09/17 06:30 06/09/17 06:00 06/09/17 06:30 06/09/17 06:30 06/09/17 06:30 - Laboratory Result Diagrams: 06/09/17 06:06 06/09/17 06:06 Laboratory results interpreted by me: 06/09/17 06/09/17 06:06 06:06 RDW 15.1 H Est GFR ( Amer) 59 L Est GFR (Non-Af Amer) 49 L Glucose 115 H Creatine Kinase 239 H Total Protein 8.5 H Critical Care Note - Critical Care Note Total time excluding time spent on procedures (mins): 90 Comments: Consult patient with specialists, coordination of transfer of care, blood pressure management hypertensive crisis Discharge - Discharge Clinical Impression: Acute ischemic stroke Condition: Good Disposition: [facility]
[2017-06-09] MEDS ORDERED: NICARDIPINE HCL RTU, ISO-OS 20 MG/200 ML RTUINJ IV PRN (07:57)
--- NOTE | 2017-06-09 08:08 | EKG REPORT ---
SEVERITY:- ABNORMAL ECG - SINUS RHYTHM PROBABLE LEFT ATRIAL ABNORMALITY LEFT VENTRICULAR HYPERTROPHY : Confirmed by: Hakeem Villatoro MD 09-Jun-2017 08:07:36
--- NOTE | 2017-06-09 09:02 | RADIOLOGY REPORT (SQ) ---
EXAM DESCRIPTION: CTA HEAD COMPLETED DATE/TIME: 06/09/2017 8:47 am REASON FOR STUDY: stroke COMPARISON: None. TECHNIQUE: Post IV contrast scanning, thin section axial imaging through the brain to evaluate the a rterial structures. Source and MIP images are saved and reviewed on PACS. Advanced 3D imaging as volume-rendering, MIPs, SSD performed? yes All CT scanners at this facility use dose modulation, iterative reconstruction, and/or weight based d osing when appropriate to reduce radiation dose to as low as reasonably achievable (ALARA). [facility]: Dose Right [facility]: CareDose [facility]: Dose Right [facility]: Teradose 4D [facility]: Smart Technologies CONTRAST TYPE AND DOSE: See separate report of the same date. RENAL FUNCTION: See separate report of the same date. LIMITATIONS: None. FINDINGS: [place]: The anterior, middle, posterior cerebral arteries are all patent. No ev idence of aneurysm or focal stenosis. POSTERIOR CIRCULATION: The distal vertebral arteries are patent as is the basilar artery. No aneurysm . BRAIN: No acute findings. BONES: Intact as visualized. SINUSES: No fluid or mucosal thickening. OTHER: No other significant finding. IMPRESSION: NO CTA EVIDENCE OF STENOSIS OR ANEURYSM OF THE [place]. TECHNICAL DOCUMENTATION: JOB ID: [id number] Quality ID # [id number]: Final reports with documentation of one or more dose reduction techniques (e.g., Au tomated exposure control, adjustment of the mA and/or kV according to patient size, use of iterative reconstruction technique) 2010 [employer]- All Rights Reserved Reading location - IP/workstation name: [email or web address]
--- NOTE | 2017-06-09 09:04 | RADIOLOGY REPORT (SQ) ---
EXAM DESCRIPTION: CTA NECK COMPLETED DATE/TIME: 06/09/2017 8:47 am REASON FOR STUDY: stroke COMPARISON: None. TECHNIQUE: Axial dynamic scanning technique with dynamic contrast enhancement through the extra-product craftsman nial carotid and vertebral arteries. Multiplanar reconstruction. 3-D MIPS and Volume-rendered imag es acquired at the workstation and saved to PACS. Images are reviewed in soft tissue, bone, lung w indows. All CT scanners at this facility use dose modulation, iterative reconstruction, and/or weight based d osing when appropriate to reduce radiation dose to as low as reasonably achievable (ALARA). [facility]: Dose Right [facility]: CareDose [facility]: Dose Right [facility]: Teradose 4D [facility]: [employer] CONTRAST TYPE AND DOSE: contrast/concentration: Isovue 370.00 mg/ml; Total Contrast Delivered: 70.0 ml; Total Saline Delivered: 75.0 ml RENAL FUNCTION: BUN 17 creatinine 1.1 LIMITATIONS: None. FINDINGS: AORTIC ARCH: Normal three-vessel origin. Bilateral subclavian arteries are patent. No d issection. RIGHT CAROTIDS: Patent common, internal and external carotid arteries without suggestion of significa nt stenosis or irregular plaque. No dissection. RIGHT VERTEBRAL: Patent. No dissection. LEFT CAROTIDS: Patent common, internal and external carotid arteries without suggestion of significan t stenosis or irregular plaque. No dissection. LEFT VERTEBRAL: Patent. No dissection. OTHER: No other significant finding. OTHER: 3-D reconstructions confirm findings. IMPRESSION: No significant stenosis. COMMENT: Quality ID #[id number]: Measurements of distal internal carotid diameter were used as the denomina tor for stenosis measurement. TECHNICAL DOCUMENTATION: JOB ID: [id number] Quality ID # 436: Final reports with documentation of one or more dose reduction techniques (e.g., Au tomated exposure control, adjustment of the mA and/or kV according to patient size, use of iterative reconstruction technique) 2010 [employer]- All Rights Reserved Reading location - IP/workstation name: [email or web address]
[2017-06-09] MEDS ORDERED: ASPIRIN 81 MG TABLET, CHEWABLE PO ONE (09:38)
--- NOTE | 2017-06-09 11:47 | RADIOLOGY REPORT (SQ) ---
EXAM DESCRIPTION: MRI HEAD WITHOUT COMPLETED DATE/TIME: 06/09/2017 11:27 am REASON FOR STUDY: stroke symptoms on the right COMPARISON: None. TECHNIQUE: Multiplanar imaging includes non-contrasted T1, T2, FLAIR, and diffusion with ADC map seq uences. Images stored on PACS. LIMITATIONS: None. FINDINGS: ANATOMY: Empty sella anatomic variant. CSF SPACES: Atrophy induced prominence of ventricles and CSF spaces. CEREBRUM: Approximately 2 cm maximal diameter focus of abnormal signal in the left parietal lobe whit e matter which is bright on diffusion and dark on ADC map consistent acute infarct. Old lacunar infa rct right parietal lobe. There is a background of chronic ischemic changes. POSTERIOR FOSSA: No signal alteration. No hemorrhage. No edema, masses or mass effect. Internal alicia tory canals, cerebello-pontine angles, mastoids normal. DIFFUSION IMAGING: See above. ORBITS: No masses. Globes normal. PARANASAL SINUSES: No fluid levels. Mucosa normal. OTHER: No other significant finding. IMPRESSION: Acute, nonhemorrhagic infarct left MCA distribution. EVIDENCE OF ACUTE STROKE: YES. LEFT MCA TECHNICAL DOCUMENTATION: JOB ID: [id number]- All Rights Reserved Reading location - IP/workstation name: [email or web address]
[2017-06-09] MEDS ORDERED: FENTANYL CITRATE INJ/PF 100 MCG/2 ML AMPUL IV ONE (12:22)
[2017-06-09] MEDS ORDERED: NORMAL SALINE 1000 ML 1,000 ML IV ONE (13:30)
[2017-06-09 15:03] VITALS: BP 161/87
== END 2017-06-09 15:55 | disposition short-term general hospital (02) ==
LOC: ER 05:39 → UNDOADMIN 11:43 → EH 11:43 → ER 15:55 → UNDODISIN 16:10
DX: I63.9 Cerebral infarction, unspecified (principal); R40.2430 Glasgow coma scale score 3-8, unspecified time; R53.1 Weakness; R47.81 Slurred speech; I10 Essential (primary) hypertension; E78.00 Pure hypercholesterolemia, unspecified; E03.9 Hypothyroidism, unspecified
CPT/HCPCS: 93005; 99291; 99292; 96375; 96365; 96366; 36415; 82553; 82962; 82550; 85025; 85610; 85730; 80053; 84484; 70551; 71045; 70450; 70496; 70498; 93010; A9270 ×2; J3010; J3490 ×2

== ENCOUNTER → 2017-12-11 | Outpatient (CLI) | payer MEDICARE, OTHER ==
[2017-12-11 10:47] LABS: HEMATOCRIT 34.8 % (36.0-47.0); HEMOGLOBIN 12.2 g/dL (12.0-15.5); MEAN CORPUSCULAR HEMOGLOBIN 31.6 pg (27.0-33.4); MEAN CORPUSCULAR HGB CONC 35.1 g/dL (32.0-36.0); MEAN CORPUSCULAR VOLUME 90 fl (80-97); PLATELET COUNT 247 10^3/uL (150-450); RED BLOOD COUNT 3.87 10^6/uL (3.72-5.28); RED CELL DISTRIBUTION WIDTH 14.4 % (11.5-14.0)
[2017-12-11 10:57] LABS: APPEARANCE,URINE SLIGHTLY-CLOUDY; BILIRUBIN,URINE NEGATIVE (NEGATIVE); COLOR,URINE YELLOW; GLUCOSE, URINE NEGATIVE (NEGATIVE); KETONES,URINE NEGATIVE (NEGATIVE); LEUKOCYTE ESTERASE,URINE LARGE (NEGATIVE); NITRITE,URINE NEGATIVE (NEGATIVE); PROTEIN,URINE NEGATIVE (NEGATIVE); URINE SPECIFIC GRAVITY 1.011; UROBILINOGEN,URINE NEGATIVE mg/dL (<2.0)
[2017-12-11 11:17] LABS: ANION GAP 15 (5-19); BLOOD UREA NITROGEN 17 mg/dL (7-20); CALCIUM 10.2 mg/dL (8.4-10.2); CARBON DIOXIDE 27 mmol/L (22-30); CHLORIDE 95 mmol/L (98-107); GLUCOSE 95 mg/dL (75-110); POTASSIUM 4.7 mmol/L (3.6-5.0); SODIUM 136.8 mmol/L (137-145)
== END ==
LOC: OD 09:57
PROVIDERS: ATTEND Physician Assistant Medical
DX: I12.9 Hypertensive chronic kidney disease with stage 1 through stage 4 chronic kidney disease, or unspecified chronic kidney disease (principal); N18.3 Chronic kidney disease, stage 3 (moderate); R80.9 Proteinuria, unspecified
CPT/HCPCS: 36415; 80048; 81001; 85027

== ENCOUNTER → 2018-02-12 | Outpatient (CLI) | payer MEDICARE, OTHER ==
--- NOTE | 2018-02-12 14:14 | WOMENS IMAGING REPORT ---
EXAM DESCRIPTION: BONE DENSITY HIP/SPINE COMPLETED DATE/TIME: 02/12/2018 1:58 pm REASON FOR STUDY: OSTEOPOROSIS Z12.31 ENCNTR SCREEN MAMMOGRAM FOR MALIGNANT NEOPLASM OF BEATRIS M81.0 AGE-RELATED OSTEOPOROSIS W/O CURRENT PATHOLOGICAL FRAC E89.41 SYMPTOMATIC POSTPROCEDURAL OVARIAN NIRAJ LURE COMPARISON: 2014 TECHNIQUE: Dual-Energy X-ray Absorptiometry (DEXA) of the AP Spine and Hip. LIMITATIONS: None. FINDINGS: LUMBAR SPINE: The bone mineral density (BMD) measured from L1-L4 in the AP projection correlates with a T-score of -0.2, previously -0.5, which is normal as defined by the World Health Organization. HIP: The bone mineral density (BMD) measured in the left hip correlates with a T-score of -3.3, previously -2.4, which is osteoporosis as defined by the World Health Organization. IMPRESSION: 1. LUMBAR SPINE: NORMAL. 2. HIP: OSTEOPOROSIS. COMMENT: The World Health Organization defines low BMD as follows: T-score: Normal: Greater than -1.0 Osteopenia: Between -1.0 and -2.5 Osteoporosis: Less than -2.5 without fractures Established osteoporosis: Less than -2.5 with fractures In general, you may wish to consider: Diagnosis Treatment Follow-up DEXA Normal BMD Prevention 2-3 years Osteopenia Prevention/Therapy 1-2 years Osteoporosis Therapy Yearly TECHNICAL DOCUMENTATION: JOB ID: [id number] [employer]- All Rights Reserved Reading location - IP/workstation name: [email or web address]
--- NOTE | 2018-02-12 14:39 | WOMENS IMAGING REPORT ---
EXAM DESCRIPTION: 3D SCREENING MAMMO BILAT COMPLETED DATE/TIME: 02/12/2018 1:58 pm REASON FOR STUDY: SCREENING MAMMO Z12.31 ENCNTR SCREEN MAMMOGRAM FOR MALIGNANT NEOPLASM OF BEATRIS M81. 0 AGE-RELATED OSTEOPOROSIS W/O CURRENT PATHOLOGICAL FRAC E89.41 SYMPTOMATIC POSTPROCEDURAL OVARIAN FAILURE COMPARISON: 2009, 2014 TECHNIQUE: Standard craniocaudal and mediolateral oblique views of each breast recorded using digita l acquisition and breast tomosynthesis. LIMITATIONS: Cardiac loop monitor. FINDINGS: No masses, calcifications or architectural distortion. No areas of suspicion. Read with the assistance of CAD. .[facility] - R2 Cenova Version 1.3 .[facility] - R2 Cenova Version 1.3 .[facility] - R2 Cenova Version 2.4 .[facility] - R2 Cenova Version 2.4 .[facility] - R2 Pre Press Manager Version 9.2 IMPRESSION: NORMAL MAMMOGRAM. BIRADS 1. BREAST DENSITY: c. The breasts are heterogeneously dense, which may obscure small masses. BIRAD: 1 NEGATIVE RECOMMENDATION: ROUTINE SCREENING COMMENT: The patient has been notified of the results by letter per SA requirements. Additional no tification policies are in place for contacting patient with suspicious or incomplete findings. Quality ID #225: The [place] [employer] recommends an annual screening mammogram for women aged 40 years or over. This facility utilizes a reminder system to ensure that all patients receive reminder letters, and/or direct phone calls for appointments. This includes reminders for routine scr eening mammograms, diagnostic mammograms, or other Breast Imaging Interventions when appropriate. Th is patient will be placed in the appropriate reminder system. The [place] [employer] (ACR) has developed recommendations for screening MRI of the breast s in certain patient populations, to be used in conjunction with mammography. Breast MRI surveillanc e may be appropriate for women with more than 20% lifetime risk of developing breast cancer as deter mined by genetic testing, significant family history of the disease, or history of mantle radiation f or Hodgkins Disease. ACR Practice Guidelines 2008. DBT Technology DBT is a type of tomographic mammography. With conventional mammography, overlapping breast tissue ma y make lesions difficult to detect, even with good compression. DBT uses an x-ray tube that rotates a round the breast, taking images at different angles. These images are then combined to create thin sl ices of the breast that the radiologist can view as a 3D reconstruction. The [employer] / [employer] unit can perform full-field digital mammograms (2D imaging); or DBT (3D imaging); or both, in a combination mode that quickly performs both the mammogram and the tomosynthesis scan while the breast is still compressed. PQRS 6045F: Fluoroscopic imaging is not utilized for breast tomosynthesis. TECHNICAL DOCUMENTATION: FINDING NUMBER: (1) ASSESSMENT: (1) JOB ID: [id number] [employer]- All Rights Reserved Reading location - IP/workstation name: [email or web address]
== END ==
LOC: WI 13:16
PROVIDERS: ATTEND Nurse Practitioner Primary Care
DX: Z12.31 Encounter for screening mammogram for malignant neoplasm of breast (principal); M81.0 Age-related osteoporosis without current pathological fracture
CPT/HCPCS: 77063; 77067; 77080

== ENCOUNTER 2018-02-28 18:02 | Inpatient (IN) | payer MEDICARE, OTHER ==
[2018-02-28] MEDS ORDERED: ACETAMINOPHEN 325 MG TABLET PO ONE ×2 (20:19→23:57)
--- NOTE | 2018-02-28 20:19 | ER Document Report ---
ED Medical Screen (RME) - General Chief Complaint: Fall Stated Complaint: FALL Time Seen by Provider: 02/28/18 20:17 Mode of Arrival: Wheelchair Information source: Patient, Relative Notes: This is a 78-year-old female that presents to the emergency room with low back pain after falling at home. Patient's states that she has been fatigued lately and that she slid off the chair falling to the ground and landing on her bottom. She was too weak to get off the floor and a neighbor helped bring her to the ER. Patient does report having a febrile illness over the last several days associated with cough, congestion. Patient denies abdominal pain. She denies headache. TRAVEL OUTSIDE OF THE [place] IN LAST 30 DAYS: No - Related Data Allergies/Adverse Reactions: No Known Allergies Allergy (Unverified 04/06/16 04:30) Past Medical History - Social History Frequency of alcohol use: None Drug Abuse: None - Past Medical History Cardiac Medical History: Reports: Hx Hypercholesterolemia, Hx Hypertension - MEDICATED Denies: Hx Heart Attack Pulmonary Medical History: Denies: Hx Asthma Neurological Medical History: Denies: Hx Cerebrovascular Accident, Hx Seizures Endocrine Medical History: Reports: Hx Hypothyroidism. Denies: Hx Diabetes Mellitus Type 2 Renal/ Medical History: Denies: Hx Peritoneal Dialysis GI Medical History: Denies: Hx Hepatitis, Hx Hiatal Hernia, Hx Ulcer Infectious Medical History: Denies: Hx Hepatitis Past Surgical History: Reports: Hx Section. Denies: Hx Hysterectomy, Hx Mastectomy, Hx Open Heart Surgery, Hx Pacemaker - Immunizations Hx Diphtheria, Pertussis, Tetanus Vaccination: Yes Physical Exam - Vital signs Vitals: Temp Pulse Resp BP Pulse Ox 101.4 F H 88 16 119/59 L 97 02/28/18 18:31 02/28/18 18:31 02/28/18 18:31 02/28/18 18:31 02/28/18 18:31 Course - Vital Signs Vital signs: Temp Pulse Resp BP Pulse Ox 101.4 F H 88 16 119/59 L 97 02/28/18 18:31 02/28/18 18:31 02/28/18 18:31 02/28/18 18:31 02/28/18 18:31 Doctor's Discharge - Discharge Referrals: JOVI TONG NP [Primary Care Provider] - Follow up as needed
[2018-02-28 20:39] LABS: ABSOLUTE BASOPHILS # (AUTO) 0.1 10^3/uL (0.0-0.2); ABSOLUTE LYMPHOCYTES (AUTO) 0.9 10^3/uL (0.5-4.7); ABSOLUTE MONOCYTES (AUTO) 0.7 10^3/uL (0.1-1.4); ABSOLUTE NEUT (AUTO) 9.3 10^3/uL (1.7-8.2); BASOPHILS % (AUTO) 0.6 % (0-2); EOSINOPHILS % (AUTO) 0.2 % (0-6); HEMOGLOBIN 13.1 g/dL (12.0-15.5); LYMPHOCYTES % (AUTO) 7.9 % (13-45); MEAN CORPUSCULAR HEMOGLOBIN 31.1 pg (27.0-33.4); MEAN CORPUSCULAR HGB CONC 34.6 g/dL (32.0-36.0); MEAN CORPUSCULAR VOLUME 90 fl (80-97); MONOCYTES % (AUTO) 6.5 % (3-13); PLATELET COUNT 246 10^3/uL (150-450); RED BLOOD COUNT 4.23 10^6/uL (3.72-5.28); RED CELL DISTRIBUTION WIDTH 13.5 % (11.5-14.0); SEGMENTED NEUTROPHILS % (AUTO) 84.8 % (42-78); TOTAL CELLS COUNTED % (AUTO) 100 %
[2018-02-28 20:55] LABS: ALANINE AMINOTRANSFERASE 85 U/L (9-52); ALBUMIN 4.9 g/dL (3.5-5.0); ALKALINE PHOSPHATASE 115 U/L (38-126); ANION GAP 14 (5-19); ASPARTATE AMINO TRANSFERASE 68 U/L (14-36); BILIRUBIN,DIRECT 0.3 mg/dL (0.0-0.4); BILIRUBIN,TOTAL 1.6 mg/dL (0.2-1.3); BLOOD UREA NITROGEN 24 mg/dL (7-20); CALCIUM 9.9 mg/dL (8.4-10.2); CARBON DIOXIDE 29 mmol/L (22-30); CHLORIDE 91 mmol/L (98-107); GLUCOSE 139 mg/dL (75-110); POTASSIUM 4.2 mmol/L (3.6-5.0); SODIUM 133.7 mmol/L (137-145); TOTAL PROTEIN 8.1 g/dL (6.3-8.2)
--- NOTE | 2018-02-28 21:02 | RADIOLOGY REPORT (SQ) ---
5 VIEWS OF THE LUMBAR SPINE HISTORY: Lower back pain. COMPARISON: None. FINDINGS: Generalized osteopenia is present. There is severe S-shaped scoliosis of the thoracolumbar spine this limits evaluation for subtle or nondisplaced fractures. However none are seen on this study. If there is high concern consider CT scan. The sacroiliac joints are preserved. Vascular calcifications are present. IMPRESSION: Severe S-shaped scoliosis of the thoracolumbar spine along with osteopenia which greatly limits evaluation for subtle or nondisplaced fractures. Consider CT scan if there is high clinical concern or point tenderness.
--- NOTE | 2018-02-28 21:07 | RADIOLOGY REPORT (SQ) ---
XR CHEST 2 VIEWS HISTORY: Fever. Cough COMPARISON: None. FINDINGS: The heart size is normal. The lungs are clear. Emphysematous changes are present diffusely. No pleural effusions or pneumothorax. No acute bony findings. IMPRESSION: No evidence of acute cardiopulmonary disease.
[2018-02-28 22:04] LABS: AMORPHOUS SEDIMENT,URINE TRACE /HPF; APPEARANCE,URINE CLOUDY; BILIRUBIN,URINE NEGATIVE (NEGATIVE); GLUCOSE, URINE NEGATIVE (NEGATIVE); KETONES,URINE TRACE mg/dL (NEGATIVE); LEUKOCYTE ESTERASE,URINE LARGE (NEGATIVE); NITRITE,URINE NEGATIVE (NEGATIVE); PROTEIN,URINE 30 mg/dL (NEGATIVE); URINE SPECIFIC GRAVITY 1.021
[2018-02-28 22:06] LABS: COLOR,URINE DARK YELLOW
[2018-02-28] MEDS ORDERED: LEVOFLOXACIN 750 MG/D5W RTU 750 MG/150 ML RTUPB IV ONE (23:07)
--- NOTE | 2018-02-28 23:08 | ER Document Report ---
ED Fall - General Mode of Arrival: Wheelchair Information source: Patient, Relative TRAVEL OUTSIDE OF THE [place] IN LAST 30 DAYS: No <DUC GARCIA - Last Filed: 03/01/18 00:14> <DONTE JUDGE - Last Filed: 03/01/18 01:01> - General Chief Complaint: Fall Stated Complaint: FALL Time Seen by Provider: 02/28/18 20:17 Notes: Patient is a 78 year old female with a history of a CVA presents to the emergency department complaining of low back pain secondary a fall. Patient states that she has been particularly weak lately and that she slid off of her chair and fell onto the floor, landing on her bottom. She states she was having back pain before the fall although the fall exacerbated her pain. She also complains of a fever, reporting a temperature of 100.0 at home, and a cough. Patient denies receiving the flu shot this year. Patient's PCP is Dr. June Tong. Of significance, patient states she had an acute ischemic stroke in May of 2017 with subsequent right sided weakness. She states her right arm still remains weak although her right leg has recovered. (DUC GARCIA) - Related data Allergies/Adverse Reactions: No Known Allergies Allergy (Unverified 04/06/16 04:30) Past Medical History - General Information source: Patient, Relative - Social History Smoking Status: Never Smoker Frequency of alcohol use: None Drug Abuse: None Family History: Reviewed & Not Pertinent Patient has suicidal ideation: No Patient has homicidal ideation: No - Past Medical History Cardiac Medical History: Reports: Hx Hypercholesterolemia, Hx Hypertension - MEDICATED Neurological Medical History: Reports: Hx Cerebrovascular Accident Endocrine Medical History: Reports: Hx Hypothyroidism Past Surgical History: Reports: Hx Section - Immunizations Hx Diphtheria, Pertussis, Tetanus Vaccination: Yes <DUC GARCIA - Last Filed: 03/01/18 00:14> Review of Systems - Review of Systems Constitutional: See HPI, Fever EENT: No symptoms reported Cardiovascular: No symptoms reported Respiratory: See HPI, Cough Gastrointestinal: No symptoms reported Genitourinary: No symptoms reported Female Genitourinary: No symptoms reported Musculoskeletal: See HPI, Back pain Skin: No symptoms reported Hematologic/Lymphatic: No symptoms reported Neurological/Psychological: No symptoms reported -: Yes All other systems reviewed and negative <DUC GARCIA - Last Filed: 03/01/18 00:14> Physical Exam <DUC GARCIA - Last Filed: 03/01/18 00:14> - Vital signs Vitals: Temp Pulse Resp BP Pulse Ox 101.4 F H 88 16 119/59 L 97 02/28/18 18:31 02/28/18 18:31 02/28/18 18:31 02/28/18 18:31 02/28/18 18:31 - Notes Notes: GENERAL: Alert, interacts well. No acute distress. HEAD: Normocephalic, atraumatic. EYES: Pupils equal, round, and reactive to light. Extraocular movements intact. ENT: Oral mucosa moist, tongue midline. Rhinorrhea. NECK: Full range of motion. Supple. Trachea midline. LUNGS: Cough. Clear to auscultation bilaterally, no wheezes, rales, or rhonchi. No respiratory distress. HEART: Regular rate and rhythm. No murmurs, gallops, or rubs. ABDOMEN: Soft, non-tender. Non-distended. Bowel sounds present in all 4 quadrants. EXTREMITIES: Moves all 4 extremities spontaneously. NEUROLOGICAL: Alert and oriented x3. Normal speech. PSYCH: Normal affect, normal mood. SKIN: Warm to the touch, dry, normal turgor. No rashes or lesions noted. BACK: Right flank and lumbar tenderness to palpation. No tenderness over the spinous . (DUC GARCIA) Course - Laboratory Result Diagrams: 02/28/18 20:25 02/28/18 20:25 <DUC GARCIA - Last Filed: 03/01/18 00:14> - Laboratory Result Diagrams: 02/28/18 20:25 02/28/18 20:25 - EKG Interpretation by [facility] EKG shows normal: Sinus rhythm, [place], Intervals, QRS Complexes. abnormal: ST-T Waves - Borderline inferior T abnormalities Rate: Normal - 77 Rhythm: NSR <DONTE JUDGE - Last Filed: 03/01/18 01:01> - Vital Signs Vital signs: Temp Pulse Resp BP Pulse Ox 97.7 F 74 16 111/52 L 100 03/01/18 00:05 03/01/18 00:05 03/01/18 00:05 03/01/18 00:05 03/01/18 00:05 - Laboratory Laboratory results interpreted by me: 02/28/18 02/28/18 02/28/18 20:25 20:25 21:14 WBC 11.0 H Seg Neutrophils % 84.8 H Lymphocytes % 7.9 L Absolute Neutrophils 9.3 H Sodium 133.7 L Chloride 91 L BUN 24 H Creatinine 1.85 H Est GFR ( Amer) 32 L Est GFR (Non-Af Amer) 26 L Glucose 139 H Total Bilirubin 1.6 H AST 68 H ALT 85 H Urine Protein 30 H Urine Ketones TRACE H Urine Urobilinogen 2.0 H Ur Leukocyte Esterase LARGE H Critical Care Note - Critical Care Note Total time excluding time spent on procedures (mins): 35 <DONTE JUDGE - Last Filed: 03/01/18 01:01> Discharge <DUC GARCIA - Last Filed: 03/01/18 00:14> - Discharge Admitting Provider: Hospitalist Unit Admitted: IMCU <DONTE JUDGE - Last Filed: 03/01/18 01:01> - Discharge Clinical Impression: Complicated urinary tract infection Fever Qualifiers: Fever type: unspecified Qualified Code(s): R50.9 - Fever, unspecified Fall Qualifiers: Encounter type: initial encounter Qualified Code(s): W19.XXXA - Unspecified fall, initial encounter Back pain Qualifiers: Back pain location: back pain in unspecified location Chronicity: acute Back pain laterality: right Qualified Code(s): M54.9 - Dorsalgia, unspecified Hypotension Qualifiers: Hypotension type: unspecified hypotension type Qualified Code(s): I95.9 - Hypotension, unspecified Condition: Stable Disposition: ADMITTED INPATIENT Referrals: JOVI TONG APPRENTICE/LINEMAN [Primary Care Provider] - Follow up as needed Scribe Attestation: 03/01/18 00:31 I personally performed the services described in the documentation, reviewed and edited the documentation which was dictated to the scribe in my presence, and it accurately records my words and actions. (DONTE JUDGE) Scribe Documentation - Scribe Written by Noriibe:: Lenora Tello, 02/28/2018 23:17 acting as scribe for :: Khadijah <DUC GARCIA - Last Filed: 03/01/18 00:14>
[2018-02-28] MEDS ORDERED: NORMAL SALINE 1000 ML 500 ML IV ONE (23:09)
[2018-02-28 23:38] LABS: CREATINE KINASE MB < 0.22 ng/mL (<4.55)
--- NOTE | 2018-03-01 01:23 | RADIOLOGY REPORT (SQ) ---
EXAM DESCRIPTION: CT ABDOMEN WITHOUT IV CONTRAST COMPLETED DATE/TME: 03/01/2018 00:14 CLINICAL HISTORY: 78 years, Female, Pyuria, hematuria, flank pain, fever, hypotension COMPARISON: None. TECHNIQUE: Axial images of the abdomen and pelvis were performed without the use of intravenous contrast, with sagittal and coronal reformatted images. Images stored on PACS. All CT scanners at this facility use dose modulation, iterative reconstruction, and/or weight based dosing when appropriate to reduce radiation dose to as low as reasonably achievable (ALARA). [facility]: Dose Right [facility]: CareDose [facility]: Dose Right [facility]: Teradose 4D [facility]: [employer] LIMITATIONS: None. FINDINGS: Limited examination, due to the lack of intravenous contrast. No hydronephrosis or urinary stone. I cannot evaluate for the possibility of pyelonephritis, without the use of intravenous contrast. The right kidney is malrotated. The urinary bladder is unremarkable. There are atherosclerotic changes and tortuosity of the abdominal aorta, but there is no aneurysm. There is diverticulosis without diverticulitis. No evidence of appendicitis. No evidence of bowel obstruction. There is no significant radiographic abnormality of the liver, spleen, pancreas or adrenal glands. There is a small hiatal hernia. There is coronary artery calcification. There is mild bibasilar atelectasis. IMPRESSION: No acute finding. Multiple additional findings as described. TECHNICAL DOCUMENTATION: Quality ID # 436: Final reports with documentation of one or more dose reduction techniques (e.g., Automated exposure control, adjustment of the mA and/or kV according to patient size, use of iterative reconstruction technique) copyright 2011 [employer]- All Rights Reserved
[2018-03-01] MEDS ORDERED: NORMAL SALINE 1000 ML 1,000 ML IV ONE ×2 (02:10)
--- NOTE | 2018-03-01 04:04 | PDOC H&P ---
History of Present Illness Admission Date/PCP: 03/01/18 01:30 JOVI TONG NP Patient complains of: Fever History of Present Illness: BARBARA PAL is a 78 year old female with a past medical history of severe scoliosis, CVA with residual right-sided weakness. Presents after developing right-sided flank pain and fever. In the emergency room she is found to have fever, leukocytosis, acute renal failure and pyuria. She started on empiric antibiotics and referred to the hospitalist for admission. Patient denies recent antibiotic use. Past Medical History Cardiac Medical History: Reports: Hyperlipidema, Hypertension - MEDICATED Denies: Myocardial Infarction Pulmonary Medical History: Denies: Asthma Neurological Medical History: Denies: Seizures Endocrine Medical History: Reports: Hypothyroidism Denies: Diabetes Mellitus Type 2 GI Medical History: Denies: Hepatitis, Hiatal Hernia Hematology: Denies: Anemia, Sickle Cell Disease Past Surgical History Past Surgical History: Reports: Section Denies: Amputation, Hysterectomy, Mastectomy, Pacemaker Social History Information Source: Patient, [facility] Records Lives with: Spouse/Significant other Smoking Status: Never Smoker Frequency of Alcohol Use: None Hx Recreational Drug Use: No Hx Prescription Drug Abuse: No - Advance Directive Resuscitation Status: Full Code Family History Family History: Hypertension Parental Family History Reviewed: Yes Children Family History Reviewed: Yes Sibling(s) Family History Reviewed.: Yes Medication/Allergy Home Medications: Aspirin [Ecotrin 81 mg EC Tablet] 81 mg PO DAILY 06/01/16 Atenolol [Tenormin 50 mg Tablet] 50 mg PO DAILY 06/01/16 Atorvastatin Calcium [Lipitor 10 mg Tablet] 10 mg PO QHS 06/09/17 Levothyroxine Sodium [Synthroid 0.1 mg Tablet] 0.1 mg PO Q6AM 06/09/17 Allergies/Adverse Reactions: No Known Allergies Allergy (Unverified 04/06/16 04:30) Review of Systems Constitutional: ABSENT: chills, fever(s), headache(s), weight gain, weight loss Eyes: ABSENT: visual disturbances Ears: ABSENT: hearing changes Cardiovascular: ABSENT: chest pain, dyspnea on exertion, edema, orthropnea, palpitations Respiratory: ABSENT: cough, hemoptysis Gastrointestinal: ABSENT: abdominal pain, constipation, diarrhea, hematemesis, hematochezia, nausea, vomiting Genitourinary: ABSENT: dysuria, hematuria Musculoskeletal: ABSENT: joint swelling Integumentary: ABSENT: rash, wounds Neurological: ABSENT: abnormal gait, abnormal speech, confusion, dizziness, focal weakness, syncope Psychiatric: ABSENT: anxiety, depression, homidical ideation, suicidal ideation Endocrine: ABSENT: cold intolerance, heat intolerance, polydipsia, polyuria Hematologic/Lymphatic: ABSENT: easy bleeding, easy bruising Physical Exam Vital Signs: Temp Pulse Resp BP Pulse Ox 97.7 F 71 14 120/66 98 03/01/18 00:05 03/01/18 02:15 03/01/18 03:01 03/01/18 03:01 03/01/18 03:01 Intake & Output 02/27/18 02/28/18 03/01/18 11:59 11:59 11:59 Intake Total 650 Balance 650 Weight 58.9 kg General appearance: PRESENT: cooperative, mild distress. ABSENT: obese Head exam: PRESENT: atraumatic, normocephalic Eye exam: PRESENT: conjunctiva pink, EOMI, PERRLA. ABSENT: scleral icterus Ear exam: PRESENT: normal external ear exam Mouth exam: PRESENT: moist, tongue midline Neck exam: ABSENT: carotid bruit, JVD, lymphadenopathy, thyromegaly Respiratory exam: PRESENT: clear to auscultation usha. ABSENT: rales, rhonchi, wheezes Cardiovascular exam: PRESENT: RRR. ABSENT: diastolic murmur, rubs, systolic murmur Pulses: PRESENT: normal dorsalis pedis pul Vascular exam: PRESENT: normal capillary refill GI/Abdominal exam: PRESENT: normal bowel sounds, soft. ABSENT: distended, guarding, mass, organolmegaly, rebound, tenderness Rectal exam: PRESENT: deferred Extremities exam: PRESENT: full ROM. ABSENT: calf tenderness, clubbing, pedal edema Neurological exam: PRESENT: alert, awake, oriented to person, oriented to place, oriented to time, oriented to situation, CN II-XII grossly intact. ABSENT: motor sensory deficit Psychiatric exam: PRESENT: appropriate affect, normal mood. ABSENT: homicidal ideation, suicidal ideation Skin exam: PRESENT: dry, intact, warm. ABSENT: cyanosis, rash Results Laboratory Results: 02/28/18 20:25 02/28/18 20:25 02/28/18 02/28/18 02/28/18 20:25 20:25 21:14 WBC 11.0 H RBC 4.23 Hgb 13.1 Hct 38.0 MCV 90 MCH 31.1 MCHC 34.6 RDW 13.5 Plt Count 246 Seg Neutrophils % 84.8 H Lymphocytes % 7.9 L Monocytes % 6.5 Eosinophils % 0.2 Basophils % 0.6 Absolute Neutrophils 9.3 H Absolute Lymphocytes 0.9 Absolute Monocytes 0.7 Absolute Eosinophils 0.0 Absolute Basophils 0.1 Sodium 133.7 L Potassium 4.2 Chloride 91 L Carbon Dioxide 29 Anion Gap 14 BUN 24 H Creatinine 1.85 H Est GFR ( Amer) 32 L Est GFR (Non-Af Amer) 26 L Glucose 139 H Lactic Acid Calcium 9.9 Total Bilirubin 1.6 H AST 68 H ALT 85 H Alkaline Phosphatase 115 Total Protein 8.1 Albumin 4.9 Urine Color DARK YELLOW Urine Appearance CLOUDY Urine pH 5.0 Ur Specific [place] 1.021 Urine Protein 30 H Urine Glucose (UA) NEGATIVE Urine Ketones TRACE H Urine Blood NEGATIVE Urine Nitrite NEGATIVE Ur Leukocyte Esterase LARGE H Urine WBC (Auto) >182 Urine RBC (Auto) 34 02/28/18 23:15 WBC RBC Hgb Hct MCV MCH MCHC RDW Plt Count Seg Neutrophils % Lymphocytes % Monocytes % Eosinophils % Basophils % Absolute Neutrophils Absolute Lymphocytes Absolute Monocytes Absolute Eosinophils Absolute Basophils Sodium Potassium Chloride Carbon Dioxide Anion Gap BUN Creatinine Est GFR ( Amer) Est GFR (Non-Af Amer) Glucose Lactic Acid 0.9 Calcium Total Bilirubin AST ALT Alkaline Phosphatase Total Protein Albumin Urine Color Urine Appearance Urine pH Ur Specific [place] Urine Protein Urine Glucose (UA) Urine Ketones Urine Blood Urine Nitrite Ur Leukocyte Esterase Urine WBC (Auto) Urine RBC (Auto) 02/28/18 02/28/18 20:25 20:25 Creatine Kinase 48 CK-MB (CK-2) < 0.22 Troponin I 0.020 Impressions: Chest X-Ray 02/28/18 20:17 IMPRESSION: No evidence of acute cardiopulmonary disease. Lumbar Spine X-Ray 02/28/18 20:18 IMPRESSION: Severe S-shaped scoliosis of the thoracolumbar spine along with osteopenia which greatly limits evaluation for subtle or nondisplaced fractures. Consider CT scan if there is high clinical concern or point tenderness. Limited or Localized CT 03/01/18 00:14 IMPRESSION: No acute finding. Multiple additional findings as described. TECHNICAL DOCUMENTATION: Quality ID # 436: Final reports with documentation of one or more dose reduction techniques (e.g., Automated exposure control, adjustment of the mA and/or kV according to patient size, use of iterative reconstruction technique) copyright 2011 [employer]- All Rights Reserved Assessment & Plan - Diagnosis (1) Complicated urinary tract infection Is this a current diagnosis for this admission?: Yes Plan: Empiric antibiotics, IV fluid challenge, follow-up CBC and urine culture (2) Acute renal failure Is this a current diagnosis for this admission?: Yes Plan: Secondary to #1, avoid nephrotoxic meds and doses, follow-up chemistry (3) Back pain Qualifiers: Back pain location: back pain in unspecified location Chronicity: acute Back pain laterality: right Qualified Code(s): M54.9 - Dorsalgia, unspecified Is this a current diagnosis for this admission?: Yes Plan: Outpatient regiment - Time Time Spent: 30 to 50 Minutes - Inpatient Certification Medical Necessity: Need Close Monitoring Due to Risk of Patient Decompensation
[2018-03-01] MEDS ORDERED: MAGNESIUM HYDROXIDE SUSP 30 ML UDCUP PO PRN (04:05)
[2018-03-01] MEDS ORDERED: IPRATROPIUM/ALBUTEROL 0.5-2.5 MG/3 ML AMPUL NEB PRN (04:05)
[2018-03-01] MEDS: NORMAL SALINE 1000 ML 1,000 ML IV PRN ×2 (06:03→10:14)
[2018-03-01] MEDS: HEPARIN SOD (PORCINE) 5,000 UNIT/ML 1 ML SYRINGE SUBCUT SCH ×3 (06:03→21:16)
[2018-03-01 06:20] LABS: ABSOLUTE BASOPHILS # (AUTO) 0.1 10^3/uL (0.0-0.2); ABSOLUTE EOSINOPHILS # (AUTO) 0.2 10^3/uL (0.0-0.6); ABSOLUTE LYMPHOCYTES (AUTO) 1.5 10^3/uL (0.5-4.7); ABSOLUTE MONOCYTES (AUTO) 0.9 10^3/uL (0.1-1.4); ABSOLUTE NEUT (AUTO) 5.3 10^3/uL (1.7-8.2); EOSINOPHILS % (AUTO) 1.9 % (0-6); HEMATOCRIT 33.4 % (36.0-47.0); HEMOGLOBIN 11.8 g/dL (12.0-15.5); LYMPHOCYTES % (AUTO) 19.2 % (13-45); MEAN CORPUSCULAR HEMOGLOBIN 31.6 pg (27.0-33.4); MEAN CORPUSCULAR HGB CONC 35.3 g/dL (32.0-36.0); MEAN CORPUSCULAR VOLUME 90 fl (80-97); MONOCYTES % (AUTO) 11.5 % (3-13); PLATELET COUNT 176 10^3/uL (150-450); RED BLOOD COUNT 3.72 10^6/uL (3.72-5.28); RED CELL DISTRIBUTION WIDTH 13.8 % (11.5-14.0); SEGMENTED NEUTROPHILS % (AUTO) 66.4 % (42-78); TOTAL CELLS COUNTED % (AUTO) 100 %
[2018-03-01] MEDS ORDERED: LEVOTHYROXINE SODIUM 0.1 MG TABLET ONE (06:24)
[2018-03-01] MEDS: LEVOTHYROXINE SODIUM 0.1 MG TABLET PO SCH (06:31)
[2018-03-01 06:33] LABS: ANION GAP 7 (5-19); BLOOD UREA NITROGEN 19 mg/dL (7-20); CALCIUM 8.8 mg/dL (8.4-10.2); CARBON DIOXIDE 29 mmol/L (22-30); CHLORIDE 100 mmol/L (98-107); GLUCOSE 103 mg/dL (75-110); POTASSIUM 3.7 mmol/L (3.6-5.0); SODIUM 136.1 mmol/L (137-145)
[2018-03-01] MEDS: ASPIRIN 81 MG TABLET, ENT COATED PO SCH (09:19)
[2018-03-01] MEDS: ATENOLOL 50 MG TABLET PO SCH (09:19)
[2018-03-01] MEDS: DOCUSATE SODIUM 100 MG CAPSULE PO SCH ×2 (09:19→17:55)
--- NOTE | 2018-03-01 17:52 | PDOC PROGRESS REPORT ---
Subjective Progress Note for:: 03/01/18 Subjective:: This a 78 year old female with a past medical history of severe scoliosis, CVA with residual right-sided weakness and hypertension who presented with right- sided flank pain and fever. In the emergency room she is found to have fever, leukocytosis, acute renal failure and pyuria. She was admitted for acute pyelonephritis. Upon encounter, patient says she did have dysuria on top of the flank pain and fever. She says her right flank pain has improved. No other acute issues overnight. Reason For Visit: ARF UTI Physical Exam Vital Signs: Temp Pulse Resp BP Pulse Ox 98.4 F 81 14 146/55 H 93 03/01/18 14:54 03/01/18 14:54 03/01/18 14:54 03/01/18 14:54 03/01/18 14:54 Intake & Output 02/28/18 03/01/18 03/02/18 06:59 06:59 06:59 Intake Total 1347 2000 Output Total 300 Balance 1047 2000 Weight 133 lb 6.075 oz General appearance: PRESENT: no acute distress, well-developed, well-nourished Head exam: PRESENT: atraumatic, normocephalic Eye exam: PRESENT: conjunctiva pink, EOMI, PERRLA. ABSENT: scleral icterus Ear exam: PRESENT: normal external ear exam Mouth exam: PRESENT: moist, tongue midline Neck exam: ABSENT: carotid bruit, JVD, lymphadenopathy, thyromegaly Respiratory exam: PRESENT: clear to auscultation usha. ABSENT: rales, rhonchi, wheezes Cardiovascular exam: PRESENT: RRR. ABSENT: diastolic murmur, rubs, systolic murmur Pulses: PRESENT: normal dorsalis pedis pul GI/Abdominal exam: PRESENT: normal bowel sounds, soft, tenderness - mild right CVA tenderness. ABSENT: distended, guarding, mass, organolmegaly, rebound Rectal exam: PRESENT: deferred Neurological exam: PRESENT: alert, awake, oriented to person, oriented to place, oriented to time, oriented to situation Results Laboratory Results: 03/01/18 06:05 03/01/18 06:05 02/28/18 02/28/18 02/28/18 20:25 20:25 21:14 WBC 11.0 H RBC 4.23 Hgb 13.1 Hct 38.0 MCV 90 MCH 31.1 MCHC 34.6 RDW 13.5 Plt Count 246 Seg Neutrophils % 84.8 H Lymphocytes % 7.9 L Monocytes % 6.5 Eosinophils % 0.2 Basophils % 0.6 Absolute Neutrophils 9.3 H Absolute Lymphocytes 0.9 Absolute Monocytes 0.7 Absolute Eosinophils 0.0 Absolute Basophils 0.1 Sodium 133.7 L Potassium 4.2 Chloride 91 L Carbon Dioxide 29 Anion Gap 14 BUN 24 H Creatinine 1.85 H Est GFR ( Amer) 32 L Est GFR (Non-Af Amer) 26 L Glucose 139 H Lactic Acid Calcium 9.9 Total Bilirubin 1.6 H AST 68 H ALT 85 H Alkaline Phosphatase 115 Total Protein 8.1 Albumin 4.9 Urine Color DARK YELLOW Urine Appearance CLOUDY Urine pH 5.0 Ur Specific [place] 1.021 Urine Protein 30 H Urine Glucose (UA) NEGATIVE Urine Ketones TRACE H Urine Blood NEGATIVE Urine Nitrite NEGATIVE Ur Leukocyte Esterase LARGE H Urine WBC (Auto) >182 Urine RBC (Auto) 34 02/28/18 03/01/18 03/01/18 23:15 06:05 06:05 WBC 8.0 RBC 3.72 Hgb 11.8 L Hct 33.4 L MCV 90 MCH 31.6 MCHC 35.3 RDW 13.8 Plt Count 176 Seg Neutrophils % 66.4 Lymphocytes % 19.2 Monocytes % 11.5 Eosinophils % 1.9 Basophils % 1.0 Absolute Neutrophils 5.3 Absolute Lymphocytes 1.5 Absolute Monocytes 0.9 Absolute Eosinophils 0.2 Absolute Basophils 0.1 Sodium 136.1 L Potassium 3.7 Chloride 100 Carbon Dioxide 29 Anion Gap 7 BUN 19 Creatinine 1.48 H Est GFR ( Amer) 41 L Est GFR (Non-Af Amer) 34 L Glucose 103 Lactic Acid 0.9 Calcium 8.8 Total Bilirubin AST ALT Alkaline Phosphatase Total Protein Albumin Urine Color Urine Appearance Urine pH Ur Specific [place] Urine Protein Urine Glucose (UA) Urine Ketones Urine Blood Urine Nitrite Ur Leukocyte Esterase Urine WBC (Auto) Urine RBC (Auto) 02/28/18 02/28/18 20:25 20:25 Creatine Kinase 48 CK-MB (CK-2) < 0.22 Troponin I 0.020 Impressions: Chest X-Ray 02/28/18 20:17 IMPRESSION: No evidence of acute cardiopulmonary disease. Lumbar Spine X-Ray 01/18/19 20:18 IMPRESSION: Severe S-shaped scoliosis of the thoracolumbar spine along with osteopenia which greatly limits evaluation for subtle or nondisplaced fractures. Consider CT scan if there is high clinical concern or point tenderness. Limited or Localized CT 03/01/18 00:14 IMPRESSION: No acute finding. Multiple additional findings as described. TECHNICAL DOCUMENTATION: Quality ID # 436: Final reports with documentation of one or more dose reduction techniques (e.g., Automated exposure control, adjustment of the mA and/or kV according to patient size, use of iterative reconstruction technique) copyright 2011 [employer]- All Rights Reserved Assessment & Plan - Diagnosis (1) Acute pyelonephritis Is this a current diagnosis for this admission?: Yes Plan: Patient did present with fever, dysuria, right flank pain with tenderness, pyuria and leukocytosis. She was given Levaquin in the ER. Start IV Rocephin. Await blood and urine cultures. (2) Acute renal failure Is this a current diagnosis for this admission?: Yes Plan: Likely pre renal. She got 3L of fluid bolus in the ER. Continue IV fluids. Creatinine has improved down to 1.4 from 1.8.
[2018-03-01] MEDS ORDERED: CEFTRIAXONE 1 GM/D5W RTU 1 GM/50 ML RTUPB IV ONE (18:11)
[2018-03-01] MEDS: CEFTRIAXONE 1 GM/D5W RTU 1 GM/50 ML RTUPB IV SCH (18:25)
--- NOTE | 2018-03-01 18:31 | EKG REPORT ---
SEVERITY:- BORDERLINE ECG - SINUS RHYTHM BORDERLINE T ABNORMALITIES, INFERIOR LEADS : Confirmed by: Sean Stevenson 01-Mar-2018 18:30:50
[2018-03-01] MEDS: ATORVASTATIN CALCIUM 10 MG TABLET PO SCH (21:16)
[2018-03-01] MEDS: ACETAMINOPHEN 325 MG TABLET PO PRN (23:56)
[2018-03-02 05:19] LABS: ABSOLUTE BASOPHILS # (AUTO) 0.1 10^3/uL (0.0-0.2); ABSOLUTE EOSINOPHILS # (AUTO) 0.4 10^3/uL (0.0-0.6); ABSOLUTE LYMPHOCYTES (AUTO) 1.8 10^3/uL (0.5-4.7); ABSOLUTE MONOCYTES (AUTO) 1.1 10^3/uL (0.1-1.4); ABSOLUTE NEUT (AUTO) 4.5 10^3/uL (1.7-8.2); EOSINOPHILS % (AUTO) 5.3 % (0-6); HEMATOCRIT 30.6 % (36.0-47.0); HEMOGLOBIN 10.9 g/dL (12.0-15.5); LYMPHOCYTES % (AUTO) 23.2 % (13-45); MEAN CORPUSCULAR HEMOGLOBIN 31.5 pg (27.0-33.4); MEAN CORPUSCULAR HGB CONC 35.5 g/dL (32.0-36.0); MEAN CORPUSCULAR VOLUME 89 fl (80-97); MONOCYTES % (AUTO) 14.2 % (3-13); PLATELET COUNT 164 10^3/uL (150-450); RED BLOOD COUNT 3.46 10^6/uL (3.72-5.28); RED CELL DISTRIBUTION WIDTH 13.4 % (11.5-14.0); SEGMENTED NEUTROPHILS % (AUTO) 56.3 % (42-78); TOTAL CELLS COUNTED % (AUTO) 100 %; WHITE BLOOD COUNT 7.9 10^3/uL (4.0-10.5)
[2018-03-02 05:27] LABS: ANION GAP 9 (5-19); BLOOD UREA NITROGEN 17 mg/dL (7-20); CALCIUM 8.7 mg/dL (8.4-10.2); CARBON DIOXIDE 25 mmol/L (22-30); CHLORIDE 101 mmol/L (98-107); GLUCOSE 95 mg/dL (75-110); POTASSIUM 3.8 mmol/L (3.6-5.0); SODIUM 135.1 mmol/L (137-145)
[2018-03-02] MEDS: LEVOTHYROXINE SODIUM 0.1 MG TABLET PO SCH (05:54)
[2018-03-02] MEDS: HEPARIN SOD (PORCINE) 5,000 UNIT/ML 1 ML SYRINGE SUBCUT SCH ×3 (05:54→21:40)
[2018-03-02] MEDS: DOCUSATE SODIUM 100 MG CAPSULE PO SCH ×2 (09:57→17:33)
[2018-03-02] MEDS: ASPIRIN 81 MG TABLET, ENT COATED PO SCH (09:59)
[2018-03-02] MEDS: ATENOLOL 50 MG TABLET PO SCH (09:59)
--- NOTE | 2018-03-02 13:38 | PDOC PROGRESS REPORT ---
Subjective Progress Note for:: 03/02/18 Subjective:: This a 78 year old female with a past medical history of severe scoliosis, CVA with residual right-sided weakness and hypertension who presented with right- sided flank pain and fever. In the emergency room she is found to have fever, leukocytosis, acute renal failure and pyuria. She was admitted for acute pyelonephritis. 03/01/18: Upon encounter, patient says she did have dysuria on top of the flank pain and fever. 03/02/18: No acute issues event overnight. She continues to feel better but still feels weak today. No fever or chills. Reason For Visit: ARF UTI Physical Exam Vital Signs: Temp Pulse Resp BP Pulse Ox 99.0 F 72 16 149/64 H 97 03/02/18 12:00 03/02/18 12:00 03/02/18 12:00 03/02/18 12:00 03/02/18 12:00 Intake & Output 03/01/18 03/02/18 03/03/18 06:59 06:59 06:59 Intake Total 1347 2494 Output Total 300 650 Balance 1047 1844 Weight 133 lb 6.075 oz 133 lb 6.075 oz General appearance: PRESENT: no acute distress, well-developed, well-nourished Head exam: PRESENT: atraumatic, normocephalic Eye exam: PRESENT: conjunctiva pink, EOMI, PERRLA. ABSENT: scleral icterus Ear exam: PRESENT: normal external ear exam Mouth exam: PRESENT: moist, tongue midline Neck exam: ABSENT: carotid bruit, JVD, lymphadenopathy, thyromegaly Respiratory exam: PRESENT: clear to auscultation usha. ABSENT: rales, rhonchi, wheezes Cardiovascular exam: PRESENT: RRR. ABSENT: diastolic murmur, rubs, systolic murmur Pulses: PRESENT: normal dorsalis pedis pul GI/Abdominal exam: PRESENT: normal bowel sounds, soft. ABSENT: distended, guarding, mass, organolmegaly, rebound, tenderness Rectal exam: PRESENT: deferred Neurological exam: PRESENT: alert, awake, oriented to person, oriented to place, oriented to situation, CN II-XII grossly intact. ABSENT: motor sensory deficit Results Laboratory Results: 03/02/18 04:36 03/02/18 04:36 03/02/18 03/02/18 04:36 04:36 WBC 7.9 RBC 3.46 L Hgb 10.9 L Hct 30.6 L MCV 89 MCH 31.5 MCHC 35.5 RDW 13.4 Plt Count 164 Seg Neutrophils % 56.3 Lymphocytes % 23.2 Monocytes % 14.2 H Eosinophils % 5.3 Basophils % 1.0 Absolute Neutrophils 4.5 Absolute Lymphocytes 1.8 Absolute Monocytes 1.1 Absolute Eosinophils 0.4 Absolute Basophils 0.1 Sodium 135.1 L Potassium 3.8 Chloride 101 Carbon Dioxide 25 Anion Gap 9 BUN 17 Creatinine 1.24 Est GFR ( Amer) 51 L Est GFR (Non-Af Amer) 42 L Glucose 95 Calcium 8.7 02/28/18 02/28/18 20:25 20:25 Creatine Kinase 48 CK-MB (CK-2) < 0.22 Troponin I 0.020 Impressions: Chest X-Ray 02/28/18 20:17 IMPRESSION: No evidence of acute cardiopulmonary disease. Lumbar Spine X-Ray 02/28/18 20:18 IMPRESSION: Severe S-shaped scoliosis of the thoracolumbar spine along with osteopenia which greatly limits evaluation for subtle or nondisplaced fractures. Consider CT scan if there is high clinical concern or point tenderness. Limited or Localized CT 03/01/18 00:14 IMPRESSION: No acute finding. Multiple additional findings as described. TECHNICAL DOCUMENTATION: Quality ID # 436: Final reports with documentation of one or more dose reduction techniques (e.g., Automated exposure control, adjustment of the mA and/or kV according to patient size, use of iterative reconstruction technique) copyright 2011 [employer]- All Rights Reserved Assessment & Plan - Diagnosis (1) Acute pyelonephritis Is this a current diagnosis for this admission?: Yes Plan: Patient did present with fever, dysuria, right flank pain with tenderness, pyuria and leukocytosis. She was given Levaquin in the ER. Continue. Await blood and urine cultures. (2) Acute renal failure Is this a current diagnosis for this admission?: Yes Plan: Resolving. Likely pre renal. She got 3L of fluid bolus in the ER. Continue IV fluids. Creatinine has improved down to 1.2 from 1.8. - Time Time Spent with patient: 25-34 minutes
[2018-03-02] MEDS: CEFTRIAXONE 1 GM/D5W RTU 1 GM/50 ML RTUPB IV SCH (17:29)
[2018-03-02] MEDS: ATORVASTATIN CALCIUM 10 MG TABLET PO SCH (21:40)
[2018-03-02] MEDS: ACETAMINOPHEN 325 MG TABLET PO PRN (21:40)
[2018-03-03] MEDS: HEPARIN SOD (PORCINE) 5,000 UNIT/ML 1 ML SYRINGE SUBCUT SCH ×2 (06:20→13:41)
[2018-03-03] MEDS: LEVOTHYROXINE SODIUM 0.1 MG TABLET PO SCH (06:23)
[2018-03-03] MEDS: DOCUSATE SODIUM 100 MG CAPSULE PO SCH (09:47)
[2018-03-03] MEDS: ASPIRIN 81 MG TABLET, ENT COATED PO SCH (09:49)
[2018-03-03] MEDS: ATENOLOL 50 MG TABLET PO SCH (09:49)
[2018-03-03 16:22] VITALS: BP 121/47
--- NOTE | 2018-03-03 19:25 | PDOC DISCHARGE SUMMARY ---
General - Admit/Disc Date/PCP Admission Date/Primary Care Provider: 03/01/18 01:30 JOVI TONG NP Discharge Date: 03/03/18 - Discharge Diagnosis (1) Acute pyelonephritis Is this a current diagnosis for this admission?: Yes (2) Acute renal failure Is this a current diagnosis for this admission?: Yes - Additional Information Resuscitation Status: Full Code Discharge Diet: As Tolerated Discharge Activity: Activity As Tolerated, Balance Activity w/Rest Prescriptions: Amox Tr/Potassium Clavulanate [Augmentin 875-125 mg Tablet] 1 tab PO BID 5 Days #10 tablet Atorvastatin Calcium [Lipitor 40 mg Tablet] 40 mg PO QHS #30 tablet Benzonatate [Tessalon Perles 100 mg Capsule] 100 mg PO Q12HP PRN #16 capsule PRN Reason: Home Medications: Acetaminophen [Tylenol 325 mg Tablet] 325 mg PO PRN PRN 03/01/18 Amlodipine Besylate [Norvasc 10 mg Tablet] 10 mg PO DAILY 03/01/18 Aspirin [Ecotrin] 81 mg PO DAILY PRN 03/01/18 Chlorthalidone [Hygroton 25 mg Tablet] 12.5 mg PO DAILY 03/01/18 Cholecalciferol (Vitamin D3) [Vitamin D3 1000 Unit Tablet] 1,000 unit PO DAILY 03/01/18 Levothyroxine Sodium [Synthroid 0.025 mg Tablet] 0.025 mg PO DAILY 03/01/18 Lisinopril [Prinivil] 20 mg PO DAILY 03/01/18 Amox Tr/Potassium Clavulanate [Augmentin 875-125 mg Tablet] 1 tab PO BID 5 Days #10 tablet 03/03/18 Atenolol [Tenormin 50 mg Tablet] 50 mg PO DAILY tablet 03/03/18 Atorvastatin Calcium [Lipitor 40 mg Tablet] 40 mg PO QHS #30 tablet 03/03/18 Benzonatate [Tessalon Perles 100 mg Capsule] 100 mg PO Q12HP PRN #16 capsule History of Present Illness History of Present Illness: Admitting hospitalist's H&P: BARBARA PAL is a 78 year old female with a past medical history of severe scoliosis, CVA with residual right-sided weakness. Presents after developing right-sided flank pain and fever. In the emergency room she is found to have fever, leukocytosis, acute renal failure and pyuria. She was started on empiric antibiotics and referred to the hospitalist for admission. Hospital Course Hospital Course: This a 78 year old female with a past medical history of severe scoliosis, CVA with residual right-sided weakness and hypertension who presented with right- sided flank pain and fever. In the emergency room she is found to have fever, leukocytosis, acute renal failure and pyuria. She was admitted for acute pyelo nephritis. She did have significant improvement with IV antibiotics. Her abdominal pain and flank tenderness resolved. She was also evaluated by PT. She will be discharged on Augmentin for 5 more days. Physical Exam Vital Signs: Temp Pulse Resp BP Pulse Ox 99.0 F 82 17 119/52 L 98 03/03/18 16:05 03/03/18 16:05 03/03/18 16:05 03/03/18 16:05 03/03/18 16:05 Intake & Output 03/02/18 03/03/18 03/04/18 06:59 06:59 06:59 Intake Total 2494 830 Output Total 650 550 Balance 1844 280 Weight 133 lb 6.075 oz 134 lb 0.657 oz General appearance: PRESENT: no acute distress, well-developed, well-nourished Head exam: PRESENT: atraumatic, normocephalic Eye exam: PRESENT: conjunctiva pink, EOMI, PERRLA. ABSENT: scleral icterus Ear exam: PRESENT: normal external ear exam Mouth exam: PRESENT: moist, tongue midline Neck exam: ABSENT: carotid bruit, JVD, lymphadenopathy, thyromegaly Respiratory exam: PRESENT: clear to auscultation usha. ABSENT: rales, rhonchi, wheezes Cardiovascular exam: PRESENT: RRR. ABSENT: diastolic murmur, rubs, systolic murmur Pulses: PRESENT: normal dorsalis pedis pul GI/Abdominal exam: PRESENT: normal bowel sounds, soft. ABSENT: distended, guarding, mass, organolmegaly, rebound, tenderness Rectal exam: PRESENT: deferred Neurological exam: PRESENT: alert, awake, oriented to person, oriented to place, oriented to time, oriented to situation, CN II-XII grossly intact. ABSENT: motor sensory deficit Results Laboratory Results: 03/02/18 04:36 03/02/18 04:36 01/18/19 21:14 Clean Catch Midstream Urine Culture - Final Mixed Urogenital Capri 02/28/18 02/28/18 20:25 20:25 Creatine Kinase 48 CK-MB (CK-2) < 0.22 Troponin I 0.020 Impressions: Chest X-Ray 02/28/18 20:17 IMPRESSION: No evidence of acute cardiopulmonary disease. Lumbar Spine X-Ray 02/28/18 20:18 IMPRESSION: Severe S-shaped scoliosis of the thoracolumbar spine along with osteopenia which greatly limits evaluation for subtle or nondisplaced fractures. Consider CT scan if there is high clinical concern or point tenderness. Limited or Localized CT 03/01/18 00:14 IMPRESSION: No acute finding. Multiple additional findings as described. TECHNICAL DOCUMENTATION: Quality ID # [id number]: Final reports with documentation of one or more dose reduction techniques (e.g., Automated exposure control, adjustment of the mA and/or kV according to patient size, use of iterative reconstruction technique) copyright 2011 [employer]- All Rights Reserved Qualifiers - * PATIENT BEING DISCHARGED WITH ANY OF THE FOLLOWING DIAGNOSIS: No
== END 2018-03-03 16:38 | disposition home health service (06) | DRG 690 ==
LOC: ER 18:02 → EH 03-01 01:30 → 5 03-01 14:40
PROVIDERS: ADMIT Internal Medicine; ATTEND Internal Medicine
DX: N10 Acute pyelonephritis (principal); N17.9 Acute kidney failure, unspecified; M41.9 Scoliosis, unspecified; I69.341 Monoplegia of lower limb following cerebral infarction affecting right dominant side; E03.9 Hypothyroidism, unspecified; I10 Essential (primary) hypertension; Z79.899 Other long term (current) drug therapy; M54.9 Dorsalgia, unspecified; Z91.81 History of falling
CPT/HCPCS: 36415; 71046; 72110; 76380; 80048; 80053; 81001; 82550; 82553; 83605; 84484; 85025; 87040; 87086; 93005; 93010; 96360; 99291; J0696; J1644; J1956; J7030

== ENCOUNTER 2018-05-10 17:48 | Emergency (ER) | payer MEDICARE, OTHER ==
--- NOTE | 2018-05-10 18:28 | ER Document Report ---
ED Medical Screen (RME) - General Chief Complaint: Dizziness Stated Complaint: DIZZINESS Time Seen by Provider: 05/10/18 18:16 Primary Care Provider: JOVI TONG NP [Primary Care Provider] - Follow up as needed Notes: 78-year-old female patient comes emergency room with a one-week history of dizzy, headache, back pain, weakness, and eyes being irritated and matted. She has been coughing and reports the sputum looks like "banana pudding". I have greeted and performed a rapid initial assessment of this patient. A comprehensive ED assessment and evaluation of the patient, analysis of test results and completion of the medical decision making process will be conducted by additional ED providers. TRAVEL OUTSIDE OF THE [place] IN LAST 30 DAYS: No - Related Data Allergies/Adverse Reactions: No Known Allergies Allergy (Verified 05/10/18 17:52) Past Medical History - Social History Chew tobacco use (# tins/day): No Frequency of alcohol use: None Drug Abuse: None - Past Medical History Cardiac Medical History: Reports: Hx Hypercholesterolemia, Hx Hypertension Denies: Hx Heart Attack Pulmonary Medical History: Denies: Hx Asthma Neurological Medical History: Reports: Hx Cerebrovascular Accident. Denies: Hx Seizures Endocrine Medical History: Reports: Hx Hypothyroidism. Denies: Hx Diabetes Mellitus Type 2 Renal/ Medical History: Reports: Hx End Stage Renal Disease - unsure what type kidney disease. Denies: Hx Peritoneal Dialysis GI Medical History: Denies: Hx Hepatitis, Hx Hiatal Hernia, Hx Ulcer Psychiatric Medical History: Denies: Hx Depression Infectious Medical History: Denies: Hx Hepatitis Past Surgical History: Reports: Hx Section. Denies: Hx Hysterectomy, Hx Mastectomy, Hx Open Heart Surgery, Hx Pacemaker - Immunizations Hx Diphtheria, Pertussis, Tetanus Vaccination: Yes Physical Exam - Vital signs Vitals: Temp Pulse Resp BP Pulse Ox 98.6 F 88 16 122/55 L 96 05/10/18 17:57 05/10/18 17:57 05/10/18 17:57 05/10/18 17:57 05/10/18 17:57 Course - Vital Signs Vital signs: Temp Pulse Resp BP Pulse Ox 98.6 F 88 16 122/55 L 96 05/10/18 17:57 05/10/18 17:57 05/10/18 17:57 05/10/18 17:57 05/10/18 17:57 Doctor's Discharge - Discharge Referrals: JOVI TONG NP [Primary Care Provider] - Follow up as needed
--- NOTE | 2018-05-10 19:00 | RADIOLOGY REPORT (SQ) ---
EXAM DESCRIPTION: CHEST 2 VIEWS COMPLETED DATE/TIME: 05/10/2018 6:51 pm REASON FOR STUDY: Yellow/mccormack productive cough COMPARISON: 02/28/2018 TECHNIQUE: Frontal and lateral radiographic views of the chest acquired. NUMBER OF VIEWS: Two view. LIMITATIONS: None. FINDINGS: LUNGS AND PLEURA: No pneumothorax. No consolidation or pleural effusion. MEDIASTINUM AND HILAR STRUCTURES: Stable. HEART AND VASCULAR STRUCTURES: Stable. BONES: No acute findings. 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 OTHER: No other significant finding. IMPRESSION: NO ACUTE FINDINGS. TECHNICAL DOCUMENTATION: JOB ID: [id number] [id number] 2010 [employer]- All Rights Reserved Reading location - IP/workstation name: [email or web address]
[2018-05-10 19:17] LABS: ABSOLUTE BASOPHILS # (AUTO) 0.1 10^3/uL (0.0-0.2); ABSOLUTE EOSINOPHILS # (AUTO) 0.2 10^3/uL (0.0-0.6); ABSOLUTE LYMPHOCYTES (AUTO) 1.8 10^3/uL (0.5-4.7); ABSOLUTE MONOCYTES (AUTO) 1.4 10^3/uL (0.1-1.4); ABSOLUTE NEUT (AUTO) 5.4 10^3/uL (1.7-8.2); BASOPHILS % (AUTO) 0.7 % (0-2); EOSINOPHILS % (AUTO) 2.6 % (0-6); HEMATOCRIT 34.3 % (36.0-47.0); HEMOGLOBIN 12.2 g/dL (12.0-15.5); LYMPHOCYTES % (AUTO) 19.8 % (13-45); MEAN CORPUSCULAR HEMOGLOBIN 32.1 pg (27.0-33.4); MEAN CORPUSCULAR HGB CONC 35.7 g/dL (32.0-36.0); MEAN CORPUSCULAR VOLUME 90 fl (80-97); MONOCYTES % (AUTO) 16.1 % (3-13); PLATELET COUNT 287 10^3/uL (150-450); RED BLOOD COUNT 3.81 10^6/uL (3.72-5.28); RED CELL DISTRIBUTION WIDTH 13.8 % (11.5-14.0); SEGMENTED NEUTROPHILS % (AUTO) 60.8 % (42-78); TOTAL CELLS COUNTED % (AUTO) 100 %; WHITE BLOOD COUNT 8.9 10^3/uL (4.0-10.5)
[2018-05-10 19:36] LABS: ALANINE AMINOTRANSFERASE 28 U/L (9-52); ALBUMIN 4.2 g/dL (3.5-5.0); ALKALINE PHOSPHATASE 103 U/L (38-126); ANION GAP 13 (5-19); ASPARTATE AMINO TRANSFERASE 24 U/L (14-36); BILIRUBIN,DIRECT 0.5 mg/dL (0.0-0.4); BILIRUBIN,TOTAL 1.4 mg/dL (0.2-1.3); BLOOD UREA NITROGEN 27 mg/dL (7-20); CALCIUM 9.7 mg/dL (8.4-10.2); CARBON DIOXIDE 27 mmol/L (22-30); CHLORIDE 93 mmol/L (98-107); CREATINE KINASE 53 U/L (30-135); GLUCOSE 106 mg/dL (75-110); POTASSIUM 4.1 mmol/L (3.6-5.0); TOTAL PROTEIN 7.5 g/dL (6.3-8.2)
[2018-05-10 19:47] LABS: CREATINE KINASE MB < 0.22 ng/mL (<4.55); TROPONIN I < 0.012 ng/mL
[2018-05-10 20:37] LABS: APPEARANCE,URINE CLOUDY; BILIRUBIN,URINE NEGATIVE (NEGATIVE); COLOR,URINE AMBER; GLUCOSE, URINE NEGATIVE (NEGATIVE); KETONES,URINE NEGATIVE (NEGATIVE); LEUKOCYTE ESTERASE,URINE LARGE (NEGATIVE); NITRITE,URINE NEGATIVE (NEGATIVE); PROTEIN,URINE NEGATIVE (NEGATIVE); URINE SPECIFIC GRAVITY 1.017
--- NOTE | 2018-05-10 21:55 | ER Document Report ---
ED General - General Chief Complaint: Dizziness Stated Complaint: DIZZINESS Time Seen by Provider: 05/10/18 18:16 Primary Care Provider: JOVI TONG NP [Primary Care Provider] - Follow up in 3-5 days Notes: Patient is a 78-year-old female with a past medical history of hypertension, hyperlipidemia, prior CVA, presents complaining of 1 week of sinus congestion, drainage from the eyes, sore throat, and a nonproductive cough. The patient also reports that for the past 3-4 days she has had dysuria. States that her symptoms started gradually, have progressively worsened since onset. Described as being mild to moderate in severity. Nothing seems to improve or worsen her symptoms. She has not seen her general physician regarding today's concerns. She denies chest pain or shortness of breath. She has not had fever or constitutional symptoms. States she has had similar symptoms in the past with sinus infections. She has had similar dysuria in the past with urinary tract infections. Denies any flank tenderness. TRAVEL OUTSIDE OF THE [place] IN LAST 30 DAYS: No - Related Data Allergies/Adverse Reactions: No Known Allergies Allergy (Verified 05/10/18 17:52) Past Medical History - General Information source: Patient - Social History Smoking Status: Never Smoker Chew tobacco use (# tins/day): No Frequency of alcohol use: None Drug Abuse: None Lives with: Spouse/Significant other Family History: Hypertension Patient has suicidal ideation: No Patient has homicidal ideation: No - Past Medical History Cardiac Medical History: Reports: Hx Hypercholesterolemia, Hx Hypertension Denies: Hx Heart Attack Pulmonary Medical History: Denies: Hx Asthma Neurological Medical History: Reports: Hx Cerebrovascular Accident. Denies: Hx Seizures Endocrine Medical History: Reports: Hx Hypothyroidism. Denies: Hx Diabetes Mellitus Type 2 Renal/ Medical History: Reports: Hx End Stage Renal Disease - unsure what type kidney disease. Denies: Hx Peritoneal Dialysis GI Medical History: Denies: Hx Hepatitis, Hx Hiatal Hernia, Hx Ulcer Psychiatric Medical History: Denies: Hx Depression Infectious Medical History: Denies: Hx Hepatitis Past Surgical History: Reports: Hx Section. Denies: Hx Hysterectomy, H x Mastectomy, Hx Open Heart Surgery, Hx Pacemaker - Immunizations Hx Diphtheria, Pertussis, Tetanus Vaccination: Yes Review of Systems - Review of Systems Notes: Constitutional: Negative for fever. HENT: Positive for sore throat. Eyes: Positive for bilateral eye drainage Cardiovascular: Negative for chest pain. Respiratory: Negative for shortness of breath. Gastrointestinal: Negative for abdominal pain, positive for nausea Genitourinary: Positive for dysuria. Musculoskeletal: Negative for back pain. Skin: Negative for rash. Neurological: Negative for headaches, weakness or numbness. 10 point ROS negative except as marked above and in HPI. Physical Exam - Vital signs Vitals: Temp Pulse Resp BP Pulse Ox 98.6 F 88 16 122/55 L 96 05/10/18 17:57 05/10/18 17:57 05/10/18 17:57 05/10/18 17:57 05/10/18 17:57 Interpretation: Normal Notes: PHYSICAL EXAMINATION: GENERAL: Well-appearing, well-nourished and in no acute distress. HEAD: Atraumatic, normocephalic. EYES: Pupils equal round and reactive to light, extraocular movements intact, sclera anicteric, conjunctiva are normal. ENT: His congestion, oropharynx clear without exudates. Mild dry mucous membranes. NECK: Normal range of motion, supple without lymphadenopathy LUNGS: Breath sounds clear to auscultation bilaterally and equal. No wheezes rales or rhonchi. HEART: Regular rate and rhythm without murmurs ABDOMEN: Soft, nontender, normoactive bowel sounds. No guarding, no rebound. No masses appreciated. EXTREMITIES: Normal range of motion, no pitting or edema. No cyanosis. NEUROLOGICAL: No focal neurological deficits. Moves all extremities spontaneously and on command. PSYCH: Normal mood, normal affect. SKIN: Warm, Dry, normal turgor, no rashes or lesions noted. Course - Re-evaluation Re-evalutation: 05/10/18 21:50 Patient presents with multiple concerns primarily focused around bilateral eye drainage, sinus pressure, cough, sore throat and loss of voice. Symptoms have been ongoing for 5-6 days. Patient is overall not, no acute distress. Chest x- ray clear. Labs show chronic kidney disease relatively unchanged from previous. Patient has been followed with nephrology regarding this issue. Urinalysis is also suggestive of a possible urinary tract infection although when her previous urine was found to appear in this manner than it being mixed urogenital claudia. Patient does however note that she has had dysuria as well and this will therefore be treated using cephalexin. Urine culture has been sent. Vitals are all within normal limits no hypoxia, tachypnea or tachycardia. No fever. Patient otherwise well in appearance. In agreement with discharge home with close outpatient follow-up. At this time will discharge with return precautions and follow-up recommendations. Verbal discharge instructions given a the bedside and opportunity for questions given. Medication warnings reviewed. Patient is in agreement with this plan and has verbalized understanding of retur n precautions and the need for primary care follow-up in the next 24-72 hours. - Vital Signs Vital signs: Temp Pulse Resp BP Pulse Ox 98.3 F 88 15 150/67 H 98 05/10/18 22:36 05/10/18 17:57 05/10/18 22:36 05/10/18 22:36 05/10/18 22:36 - Laboratory Result Diagrams: 05/10/18 19:00 05/10/18 19:00 Laboratory results interpreted by me: 05/10/18 05/10/18 05/10/18 19:00 19:00 20:02 Hct 34.3 L Monocytes % 16.1 H Sodium 133.0 L Chloride 93 L BUN 27 H Creatinine 1.95 H Est GFR ( Amer) 30 L Est GFR (Non-Af Amer) 25 L Total Bilirubin 1.4 H Direct Bilirubin 0.5 H Urine Urobilinogen 4.0 H Ur Leukocyte Esterase LARGE H - Diagnostic Test Radiology reviewed: Image reviewed, Reports reviewed Radiology results interpreted by me: 05/10/18 21:51 Chest x-ray: No acute infiltrate or pneumothorax - EKG Interpretation by Me Additional EKG results interpreted by me: 05/10/18 21:51 Sinus rhythm, rate 70. No ST elevations or depressions. LVH. QTC 428. Discharge - Discharge Clinical Impression: Viral upper respiratory infection Urinary tract infection Qualifiers: Urinary tract infection type: acute cystitis Hematuria presence: without hematuria Qualified Code(s): N30.00 - Acute cystitis without hematuria Condition: Good Disposition: HOME, SELF-CARE Additional Instructions: Your urine shows findings consistent with a urinary tract infection. Please take all the antibiotics as directed even if your symptoms have improved. Return to emergency room if you develop fever >101F, persistent vomiting, become lethargic, have severe pain in your sides, or any other symptoms that are concerning to you. Your symptoms are likely due to a viral infection either influenza or similar virus. The only treatment at this time is supportive care including drinking plenty of fluids, Tylenol and ibuprofen, as well as nausea medicines which you will be sent home with. Your symptoms will likely last for 7-10 days. Please return to the emergency department immediately if you become confused, have persistent vomiting, pass out, have severe headache, or have any other symptoms that are worrisome to you. Follow-up with your primary care doctor in the next several days. Prescriptions: Cephalexin Monohydrate [Keflex 500 mg Capsule] 500 mg PO Q6H 5 Days capsule Referrals: JOVI TONG NP [Primary Care Provider] - Follow up in 3-5 days
[2018-05-10 22:40] VITALS: BP 150/67
--- NOTE | 2018-05-11 11:07 | EKG REPORT ---
SEVERITY:- BORDERLINE ECG - SINUS RHYTHM ATRIAL PREMATURE COMPLEX LVH BY VOLTAGE : Confirmed by: Rebecca Hill MD 11-May-2018 11:06:06
== END 2018-05-10 22:43 | disposition home or self-care (01) ==
LOC: ER 17:48
DX: N30.00 Acute cystitis without hematuria (principal); J06.9 Acute upper respiratory infection, unspecified; R42 Dizziness and giddiness; B34.9 Viral infection, unspecified; I10 Essential (primary) hypertension; E78.5 Hyperlipidemia, unspecified; Z86.73 Personal history of transient ischemic attack (TIA), and cerebral infarction without residual deficits
CPT/HCPCS: 36415; 71046; 80053; 81001; 82550; 82553; 84484; 85025; 87040; 87070; 87086; 87205; 93005; 93010; 99284

== ENCOUNTER → 2018-06-18 | Outpatient (CLI) | payer MEDICARE, OTHER ==
[2018-06-18 09:53] LABS: HEMATOCRIT 36.1 % (36.0-47.0); HEMOGLOBIN 12.4 g/dL (12.0-15.5); MEAN CORPUSCULAR HEMOGLOBIN 30.7 pg (27.0-33.4); MEAN CORPUSCULAR HGB CONC 34.2 g/dL (32.0-36.0); MEAN CORPUSCULAR VOLUME 90 fl (80-97); PLATELET COUNT 231 10^3/uL (150-450); RED BLOOD COUNT 4.02 10^6/uL (3.72-5.28); RED CELL DISTRIBUTION WIDTH 13.7 % (11.5-14.0); WHITE BLOOD COUNT 7.2 10^3/uL (4.0-10.5)
[2018-06-18 10:07] LABS: APPEARANCE,URINE CLEAR; BILIRUBIN,URINE NEGATIVE (NEGATIVE); COLOR,URINE YELLOW; GLUCOSE, URINE NEGATIVE (NEGATIVE); KETONES,URINE NEGATIVE (NEGATIVE); LEUKOCYTE ESTERASE,URINE LARGE (NEGATIVE); NITRITE,URINE NEGATIVE (NEGATIVE); PROTEIN,URINE NEGATIVE (NEGATIVE); UROBILINOGEN,URINE NEGATIVE mg/dL (<2.0)
[2018-06-18 10:39] LABS: ANION GAP 14 (5-19); BLOOD UREA NITROGEN 17 mg/dL (7-20); CALCIUM 9.9 mg/dL (8.4-10.2); CARBON DIOXIDE 27 mmol/L (22-30); CHLORIDE 96 mmol/L (98-107); GLUCOSE 107 mg/dL (75-110); POTASSIUM 4.2 mmol/L (3.6-5.0); SODIUM 136.8 mmol/L (137-145)
== END ==
LOC: OD 09:18
PROVIDERS: ATTEND Physician Assistant Medical
DX: N18.3 Chronic kidney disease, stage 3 (moderate) (principal); I12.9 Hypertensive chronic kidney disease with stage 1 through stage 4 chronic kidney disease, or unspecified chronic kidney disease; R80.9 Proteinuria, unspecified
CPT/HCPCS: 36415; 80048; 81001; 83970; 85027

== ENCOUNTER → 2018-09-18 | Outpatient (CLI) | payer MEDICARE, OTHER ==
[2018-09-18 09:19] LABS: HEMATOCRIT 35.1 % (36.0-47.0); HEMOGLOBIN 11.9 g/dL (12.0-15.5); MEAN CORPUSCULAR HEMOGLOBIN 30.7 pg (27.0-33.4); MEAN CORPUSCULAR VOLUME 90 fl (80-97); PLATELET COUNT 231 10^3/uL (150-450); RED BLOOD COUNT 3.89 10^6/uL (3.72-5.28); RED CELL DISTRIBUTION WIDTH 13.7 % (11.5-14.0); WHITE BLOOD COUNT 7.9 10^3/uL (4.0-10.5)
[2018-09-18 09:33] LABS: ANION GAP 14 (5-19); BLOOD UREA NITROGEN 21 mg/dL (7-20); CALCIUM 9.9 mg/dL (8.4-10.2); CARBON DIOXIDE 26 mmol/L (22-30); CHLORIDE 94 mmol/L (98-107); GLUCOSE 116 mg/dL (75-110); PHOSPHORUS 3.6 mg/dL (2.5-4.5); POTASSIUM 4.1 mmol/L (3.6-5.0)
[2018-09-18 09:35] LABS: APPEARANCE,URINE CLOUDY; BILIRUBIN,URINE NEGATIVE (NEGATIVE); COLOR,URINE YELLOW; GLUCOSE, URINE NEGATIVE (NEGATIVE); KETONES,URINE NEGATIVE (NEGATIVE); LEUKOCYTE ESTERASE,URINE LARGE (NEGATIVE); NITRITE,URINE NEGATIVE (NEGATIVE); PROTEIN,URINE NEGATIVE (NEGATIVE); URINE SPECIFIC GRAVITY 1.013; UROBILINOGEN,URINE NEGATIVE mg/dL (<2.0)
[2018-09-18 09:36] LABS: ADD MANUAL MICROSCOPIC YES
[2018-09-18 09:47] LABS: BACTERIA,URINE 3+ /HPF; WBC,URINE 50-100 /HPF
== END ==
LOC: OD 08:49
PROVIDERS: ATTEND Physician Assistant Medical
DX: N18.3 Chronic kidney disease, stage 3 (moderate) (principal); I12.9 Hypertensive chronic kidney disease with stage 1 through stage 4 chronic kidney disease, or unspecified chronic kidney disease; R80.9 Proteinuria, unspecified; E87.1 Hypo-osmolality and hyponatremia; N25.0 Renal osteodystrophy
CPT/HCPCS: 36415; 80048; 81001; 83970; 84100; 85027

== ENCOUNTER → 2018-10-15 | Outpatient (CLI) | payer MEDICARE, OTHER ==
[2018-10-15 10:18] LABS: ANION GAP 10 (5-19); BLOOD UREA NITROGEN 15 mg/dL (7-20); CARBON DIOXIDE 27 mmol/L (22-30); CHLORIDE 100 mmol/L (98-107); GLUCOSE 95 mg/dL (75-110); POTASSIUM 4.6 mmol/L (3.6-5.0)
== END ==
LOC: OD 09:17
PROVIDERS: ATTEND Physician Assistant Medical
DX: I12.9 Hypertensive chronic kidney disease with stage 1 through stage 4 chronic kidney disease, or unspecified chronic kidney disease (principal); N18.3 Chronic kidney disease, stage 3 (moderate); N17.9 Acute kidney failure, unspecified; E87.1 Hypo-osmolality and hyponatremia
CPT/HCPCS: 36415; 80048

== ENCOUNTER → 2019-11-03 | Outpatient (CLI) | payer MEDICARE, OTHER ==
[2019-11-03 13:02] LABS: ABSOLUTE BASOPHILS # (AUTO) 0.1 10^3/uL (0.0-0.2); ABSOLUTE EOSINOPHILS # (AUTO) 0.3 10^3/uL (0.0-0.6); ABSOLUTE LYMPHOCYTES (AUTO) 1.7 10^3/uL (0.5-4.7); ABSOLUTE MONOCYTES (AUTO) 0.6 10^3/uL (0.1-1.4); ABSOLUTE NEUT (AUTO) 4.6 10^3/uL (1.7-8.2); BASOPHILS % (AUTO) 0.9 % (0-2); EOSINOPHILS % (AUTO) 4.1 % (0-6); HEMATOCRIT 38.3 % (36.0-47.0); HEMOGLOBIN 13.6 g/dL (12.0-15.5); MEAN CORPUSCULAR HEMOGLOBIN 31.2 pg (27.0-33.4); MEAN CORPUSCULAR HGB CONC 35.4 g/dL (32.0-36.0); MEAN CORPUSCULAR VOLUME 88 fl (80-97); MONOCYTES % (AUTO) 7.9 % (3-13); PLATELET COUNT 210 10^3/uL (150-450); RED BLOOD COUNT 4.34 10^6/uL (3.72-5.28); RED CELL DISTRIBUTION WIDTH 13.9 % (11.5-14.0); SEGMENTED NEUTROPHILS % (AUTO) 64.1 % (42-78); TOTAL CELLS COUNTED % (AUTO) 100 %; WHITE BLOOD COUNT 7.2 10^3/uL (4.0-10.5)
[2019-11-03 13:27] LABS: ALBUMIN 4.8 g/dL (3.5-5.0); ALKALINE PHOSPHATASE 125 U/L (38-126); ANION GAP 10 (5-19); ASPARTATE AMINO TRANSFERASE 26 U/L (14-36); BILIRUBIN,DIRECT 0.5 mg/dL (0.0-0.4); BILIRUBIN,TOTAL 1.8 mg/dL (0.2-1.3); BLOOD UREA NITROGEN 14 mg/dL (7-20); CALCIUM 10.2 mg/dL (8.4-10.2); CARBON DIOXIDE 26 mmol/L (22-30); CHLORIDE 100 mmol/L (98-107); CHOLESTEROL 151.67 mg/dL (0-200); GLUCOSE 102 mg/dL (75-110); POTASSIUM 4.6 mmol/L (3.6-5.0); TOTAL PROTEIN 7.9 g/dL (6.3-8.2); TRIGLYCERIDES 136 mg/dL (<150)
[2019-11-03 13:38] LABS: DIRECT LDL 60 mg/dL (<100)
== END ==
LOC: OD 11:47
PROVIDERS: ATTEND Nurse Practitioner Primary Care
DX: E55.9 Vitamin D deficiency, unspecified (principal); I12.9 Hypertensive chronic kidney disease with stage 1 through stage 4 chronic kidney disease, or unspecified chronic kidney disease; N18.3 Chronic kidney disease, stage 3 (moderate); M81.0 Age-related osteoporosis without current pathological fracture; Z86.73 Personal history of transient ischemic attack (TIA), and cerebral infarction without residual deficits; Z79.899 Other long term (current) drug therapy
CPT/HCPCS: 36415; 80053; 80061; 82306; 83036; 84443; 85025

== ENCOUNTER 2019-11-04 11:32 | Emergency (ER) | payer MEDICARE, OTHER ==
[2019-11-04 13:58] LABS: ABSOLUTE BASOPHILS # (AUTO) 0.1 10^3/uL (0.0-0.2); ABSOLUTE EOSINOPHILS # (AUTO) 0.1 10^3/uL (0.0-0.6); ABSOLUTE LYMPHOCYTES (AUTO) 1.6 10^3/uL (0.5-4.7); ABSOLUTE MONOCYTES (AUTO) 0.8 10^3/uL (0.1-1.4); ABSOLUTE NEUT (AUTO) 5.8 10^3/uL (1.7-8.2); BASOPHILS % (AUTO) 0.9 % (0-2); EOSINOPHILS % (AUTO) 1.6 % (0-6); HEMATOCRIT 38.9 % (36.0-47.0); HEMOGLOBIN 13.9 g/dL (12.0-15.5); LYMPHOCYTES % (AUTO) 19.2 % (13-45); MEAN CORPUSCULAR HEMOGLOBIN 31.2 pg (27.0-33.4); MEAN CORPUSCULAR HGB CONC 35.7 g/dL (32.0-36.0); MEAN CORPUSCULAR VOLUME 88 fl (80-97); MONOCYTES % (AUTO) 8.9 % (3-13); PLATELET COUNT 210 10^3/uL (150-450); RED BLOOD COUNT 4.45 10^6/uL (3.72-5.28); RED CELL DISTRIBUTION WIDTH 13.8 % (11.5-14.0); SEGMENTED NEUTROPHILS % (AUTO) 69.4 % (42-78); TOTAL CELLS COUNTED % (AUTO) 100 %; WHITE BLOOD COUNT 8.4 10^3/uL (4.0-10.5)
--- NOTE | 2019-11-04 14:02 | ER Document Report ---
Entered by JEAN PAUL BALDWIN SCRIBE 11/04/19 1332 Acting as scribe for:DONTE JUDGE MD ED GI/ - General Chief Complaint: Constipation Stated Complaint: PALPATATIONS,ABDOMINAL PAIN Time Seen by Provider: 11/04/19 12:54 Primary Care Provider: JOVI TONG NP [Primary Care Provider] - Follow up as needed Mode of Arrival: Wheelchair Information source: Patient, Relative - Notes: This 79 year old female patient presents to the ED today with complaints of constipation for the past x2 weeks after falling onto her buttocks. She reports associated generalized abdominal pain. at bedside notes that the patient has tried Colace without resolve. 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 TRAVEL OUTSIDE OF THE [place] IN LAST 30 DAYS: No - Related Data Allergies/Adverse Reactions: No Known Allergies Allergy (Verified 11/04/19 13:40) Past Medical History - General Information source: Patient, [facility] Records - Social History Smoking Status: Never Smoker Cigarette use (# per day): No Chew tobacco use (# tins/day): No Smoking Education Provided: No Lives with: Spouse/Significant other Family History: Reviewed & Not Pertinent, Hypertension Patient has suicidal ideation: No Patient has homicidal ideation: No - Past Medical History Cardiac Medical History: Reports: Hx Hypercholesterolemia, Hx Hypertension Neurological Medical History: Reports: Hx Cerebrovascular Accident - 05/2017 Endocrine Medical History: Reports: Hx Hypothyroidism Renal/ Medical History: Reports: Hx End Stage Renal Disease - unsure what type kidney disease Past Surgical History: Reports: Hx Section - Immunizations Hx Diphtheria, Pertussis, Tetanus Vaccination: Yes Review of Systems - Review of Systems Constitutional: No symptoms reported EENT: No symptoms reported Cardiovascular: No symptoms reported Respiratory: No symptoms reported Gastrointestinal: See HPI, Abdominal pain, Constipation Genitourinary: No symptoms reported Female Genitourinary: No symptoms reported Musculoskeletal: No symptoms reported Skin: No symptoms reported Hematologic/Lymphatic: No symptoms reported Neurological/Psychological: No symptoms reported -: Yes All other systems reviewed and negative Physical Exam - Vital signs Vitals: Temp Pulse Resp BP Pulse Ox 97.6 F 88 19 150/68 H 100 11/04/19 11:45 11/04/19 11:45 11/04/19 11:45 11/04/19 11:45 11/04/19 11:45 - General General appearance: Alert In distress: None - HEENT Head: Normocephalic, Atraumatic Eyes: Normal Pupils: PERRL - Respiratory Respiratory status: No respiratory distress Chest status: Nontender Breath sounds: Normal Chest palpation: Normal - Cardiovascular Rhythm: Regular Heart sounds: Normal auscultation Murmur: No Friction rub: No Gallop: None auscultated - Abdominal Inspection: Normal Distension: No distension Bowel sounds: Normal Tenderness: Tender - Diffusely tender to palpate, Other - Abdomen soft Organomegaly: No organomegaly - Back Back: Nontender - Patient is not tender to palpate over the coccyx, sacrum, or ischial tuberosities which is where she landed when she fell 2 weeks ago. The lumbar back has significant scoliosis. - Extremities General upper extremity: Normal inspection General lower extremity: Normal inspection - Neurological Neuro grossly intact: Yes Additional motor exam normals: Weakness - Right-sided weakness from prior stroke - Psychological Associated symptoms: Normal affect, Normal mood - Skin Skin Temperature: Warm Skin Moisture: Dry Skin Color: Normal Course - Re-evaluation Re-evalutation: 11/04/19 17:05 Patient reports a very large bowel movement after the enema and she feels much better. - Vital Signs Vital signs: Temp Pulse Resp BP Pulse Ox 97.6 F 88 19 147/83 H 100 11/04/19 11:45 11/04/19 11:45 11/04/19 16:20 11/04/19 15:00 11/04/19 15:01 - Laboratory Result Diagrams: 11/04/19 12:10 11/04/19 12:10 Laboratory results interpreted by me: 11/04/19 11/04/19 12:10 14:00 Sodium 136.6 L Creatinine 1.45 H Est GFR ( Amer) 42 L Est GFR (MDRD) Non-Af 35 L Glucose 126 H Direct Bilirubin 0.5 H Urine Ketones TRACE H Ur Leukocyte Esterase SMALL H - Diagnostic Test Radiology reviewed: Image reviewed, Reports reviewed - Acute abdominal series shows constipation with lumbar scoliosis - EKG Interpretation by Me EKG shows normal: Sinus rhythm, [place], Intervals, QRS Complexes, ST-T Waves Rate: Normal - 77 Rhythm: NSR Voltage: Consistent with LVH Discharge - Discharge Clinical Impression: Constipation Qualifiers: Constipation type: unspecified constipation type Qualified Code(s): K59.00 - Constipation, unspecified Condition: Stable Disposition: HOME, SELF-CARE Additional Instructions: Constipation Constipation is a common problem. It is especially likely as you get older. Constipation is a common cause of abdominal pain, but sometimes causes no symptoms at all. Causes of constipation include certain medications, dehydration, diets, inactivity, and low-fiber intake. Rarely, it can be a symptom of underlying disease. The physician has evaluated you for this. Avoid constipation by eating a diet high in fiber, fruits, and vegetables. Drink plenty of liquids. Get regular exercise. If possible, avoid constipating medicines like narcotic pain medication. Some vitamin tablets can cause constipation. Stool softeners may be needed for difficult cases. An excellent stool softener is Konsyl which is available at [employer], [employer]. Just add a teaspoon to a glass of pineapple or orange juice daily or twice a day if needed. Laxatives are useful for occasional constipation. You should use them only when necessary. Too-frequent use can make your bowels dependent on them. Some over the counter laxatives available without prescription are: Milk of Magnesia, 1-2 tablespoons twice a day Dulcolax, 5 mg pill or 10 mg suppository. Citrate of Magnesia, 4-5 ounces a day for a day or two For acute constipation, Fleet's Enemas and Dulcolax suppositories are helpful. 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 Your bowel may become dependant on them. You do not need to have a bowel movement every day. Many people do fine with a bowel movement every three or four days. You should call your doctor or return for re-evaluation if you pass blood in the stool, or if you develop fever or increasing abdominal pain. Try taking something like MiraLAX every day and drinking plenty of fluids throughout the day to prevent developing constipation. If your bowels are not moving well by tomorrow, take an additional dose of the magnesium citrate. Follow-up with your primary care provider as needed. RETURN TO THE EMERGENCY ROOM IF ANY NEW OR WORSENING SYMPTOMS. Referrals: JOVI TONG NP [Primary Care Provider] - Follow up as needed I personally performed the services described in the documentation, reviewed and edited the documentation which was dictated to the scribe in my presence, and it accurately records my words and actions.
[2019-11-04 14:06] LABS: BLOOD UREA NITROGEN 19 mg/dL (7-20); CALCIUM 10.2 mg/dL (8.4-10.2); GLUCOSE 126 mg/dL (75-110)
[2019-11-04 14:07] LABS: ALBUMIN 4.8 g/dL (3.5-5.0); ALKALINE PHOSPHATASE 124 U/L (38-126); ANION GAP 12 (5-19); ASPARTATE AMINO TRANSFERASE 27 U/L (14-36); BILIRUBIN,DIRECT 0.5 mg/dL (0.0-0.4); BILIRUBIN,TOTAL 1.2 mg/dL (0.2-1.3); CARBON DIOXIDE 25 mmol/L (22-30); CHLORIDE 100 mmol/L (98-107); POTASSIUM 4.3 mmol/L (3.6-5.0); TOTAL PROTEIN 8.1 g/dL (6.3-8.2)
[2019-11-04 14:28] LABS: APPEARANCE,URINE CLEAR; BILIRUBIN,URINE NEGATIVE (NEGATIVE); COLOR,URINE YELLOW; GLUCOSE, URINE NEGATIVE (NEGATIVE); KETONES,URINE TRACE mg/dL (NEGATIVE); LEUKOCYTE ESTERASE,URINE SMALL (NEGATIVE); NITRITE,URINE NEGATIVE (NEGATIVE); PROTEIN,URINE NEGATIVE (NEGATIVE); URINE SPECIFIC GRAVITY 1.009; UROBILINOGEN,URINE NEGATIVE mg/dL (<2.0)
--- NOTE | 2019-11-04 14:34 | RADIOLOGY REPORT (SQ) ---
EXAM DESCRIPTION: ACUTE ABDOMEN SERIES IMAGES COMPLETED DATE/TIME: 11/04/2019 2:24 pm REASON FOR STUDY: Constipation x2 weeks after falling onto buttocks. COMPARISON: Chest x-ray dated 05/10/2018 NUMBER OF VIEWS: Three views. TECHNIQUE: Frontal chest, supine abdomen and upright/decubitus abdomen radiographic images acquired. LIMITATIONS: None. FINDINGS: CHEST: Lungs clear of infiltrates. Loop recorder overlies the left lower hemithorax. FREE AIR: None. No abnormal gas collections. BOWEL GAS PATTERN: Nonobstructive pattern. No dilated loops or air fluid levels. Moderate stool in t he descending colon. CALCIFICATIONS: No suspicious calcifications. HARDWARE: None in the abdomen. SOFT TISSUES: No gross mass or suggestion of organomegaly. BONES: Lumbar scoliosis with concavity toward the left. OTHER: No other significant finding. IMPRESSION: Mild to moderate constipation with large amount of stool in the descending colon. No ev idence of mechanical obstruction. TECHNICAL DOCUMENTATION: JOB ID: [id number] 2010 [employer]- All Rights Reserved Reading location - IP/workstation name: [email or web address]
[2019-11-04] MEDS ORDERED: MINERAL OIL 30 ML UDCUP PR ONE (14:42)
--- NOTE | 2019-11-04 14:42 | EKG REPORT ---
SEVERITY:- ABNORMAL ECG - SINUS RHYTHM LEFT VENTRICULAR HYPERTROPHY : Confirmed by: Rebecca Hill MD 04-Nov-2019 14:41:51
[2019-11-04] MEDS ORDERED: MAGNESIUM CITRATE 296 ML BOTTLE PO ONE (15:36)
[2019-11-04 17:29] VITALS: BP 142/74
== END 2019-11-04 17:30 | disposition home or self-care (01) ==
LOC: ER 11:32
DX: K59.00 Constipation, unspecified (principal); R10.84 Generalized abdominal pain; I10 Essential (primary) hypertension; M41.9 Scoliosis, unspecified; I69.351 Hemiplegia and hemiparesis following cerebral infarction affecting right dominant side; Z79.01 Long term (current) use of anticoagulants; Z91.81 History of falling
CPT/HCPCS: 93005; 99285; 36415; 83690; 85025; 80053; 81001; 74022; 93010; A9270 ×2; J3490